=== PATIENT | male | born 1980 | race Caucasian/White ===

== ENCOUNTER 2018-01-18 18:09 | Emergency (ER) | payer OTHER, SELFPAY | END 2018-01-18 19:41 | disposition home or self-care (01) | PROVIDERS: Emergency Provider Emergency Medicine; Family Provider Family Medicine; PCP Family Medicine; Visit Provider Emergency Medicine | DX: F41.9 Anxiety disorder, unspecified (principal) | CPT/HCPCS: 99282 ==

== ENCOUNTER → 2018-05-30 12:06 | Outpatient (CLI) | payer OTHER, SELFPAY ==
[2018-05-30 13:22] LABS: Alanine Aminotransferase 23 IU/L (21-72); Albumin 4.6 g/dL (3.5-5.0); Alkaline Phosphatase 39 U/L (38-126); Aspartate Aminotransferase 17 IU/L (17-59); Bilirubin Total 0.5 mg/dL (0.2-1.3); Bilirubin Unconjugated 0.2 mg/dL (0.0-1.1); Globulin 2.3 g/dL (1.7-4.1); HEMOLYSIS < 15 (0-50); Total Protein 6.9 g/dL (6.3-8.2)
== END ==
PROVIDERS: Family Provider Family Medicine; PCP Family Medicine; Visit Provider Specialist
DX: R89.2 Abnormal level of other drugs, medicaments and biological substances in specimens from other organs, systems and tissues (principal)
CPT/HCPCS: 36415; 80076

== ENCOUNTER 2018-08-01 13:30 | Oncology outpatient (ONC) | payer OTHER, SELFPAY ==
[2018-07-30] MEDS: METOCLOPRAMIDE 10 MG in SODIUM CHLORIDE 0.9% 50 ML 208 ML IV (13:57)
[2018-07-30 14:04] VITALS: BP 130/88; PULSE 65; RESP 16; TEMP 36.7; O2SAT 99
[2018-07-30] MEDS: MAGNESIUM SULFATE IV (14:45)
[2018-07-30] MEDS: VALPROIC ACID IV (14:45)
[2018-07-30] MEDS: SODIUM CHLORIDE 0.9% IV (14:45)
[2018-07-31 14:09] VITALS: BP 110/66; PULSE 70; RESP 16; TEMP 36.8; O2SAT 97
[2018-07-31] MEDS: METOCLOPRAMIDE 10 MG in SODIUM CHLORIDE 0.9% 50 ML 208 ML IV (14:16)
[2018-07-31] MEDS: VALPROIC ACID IV (14:59)
[2018-07-31] MEDS: SODIUM CHLORIDE 0.9% IV (14:59)
[2018-08-01] MEDS: METOCLOPRAMIDE 10 MG in SODIUM CHLORIDE 0.9% 50 ML 208 ML IV (13:52)
[2018-08-01] MEDS: VALPROIC ACID IV (14:44)
[2018-08-01] MEDS: SODIUM CHLORIDE 0.9% IV (14:44)
[2018-08-01 15:39] VITALS: BP 118/73; PULSE 60; RESP 16; TEMP 36.6; O2SAT 99
== END 2018-08-08 13:34 | disposition home or self-care (01) ==
PROVIDERS: Family Provider Family Medicine; PCP Family Medicine; Visit Provider Specialist
DX: G43.919 Migraine, unspecified, intractable, without status migrainosus (principal)
CPT/HCPCS: 96365; 96375; J2765; J3475

== ENCOUNTER 2019-03-31 16:52 | Emergency (ER) | payer OTHER, SELFPAY ==
[2019-03-31 16:55] VITALS: BP 133/90; PULSE 93; RESP 20; TEMP 36.9; O2SAT 99
[2019-03-31] MEDS: KETOROLAC 60 MG/2 ML VIAL IM (17:23)
--- NOTE | 2019-03-31 17:39 | ED_ITS ---
HPI - Ear Problem <MISHA Garcia-BC - Last Filed: 03/31/19 17:49> General Chief complaint: Ear Stated complaint: L ear pain poss infection Time Seen by Provider: 03/31/19 17:03 Source: patient Mode of arrival: ambulatory Limitations: no limitations History of Present Illness HPI Narrative: The patient is a 38-year-old male current everyday smoker with history of migraines. Who presents with a chief complaint of left ear pain for several days. He states it is hurting to touch it or move it. He denies any fevers nausea vomiting or diarrhea. He states he has remote history of ear infections, but nothing recently. He has been using some ibuprofen for, last dose approximately 8 am. He denies any right ear pain or sore throat. Related Data Home Medications Medication Instructions Recorded Confirmed oxycodone 5 mg PO DAILY 03/31/19 03/31/19 Previous Rx's Medication Instructions Recorded amitriptyline 10 mg tablet 10 mg PO BEDTIME #90 tab 01/21/19 promethazine 25 mg tablet 25 mg PO Q6HP PRN #20 tab 01/21/19 propranolol 40 mg tablet 40 mg PO QID #120 tab 01/21/19 ofloxacin 10 drop EAR-LEFT DAILY 10 Days #10 03/31/19 ml Allergies Allergy/AdvReac Type Severity Reaction Status Date / Time dihydroergotamine Allergy Unknown RED SKIN, Verified 11/28/18 15:49 [DIHYDROERGOTAMINE] ITCHY, VERY HOT prochlorperazine Allergy Unknown Verified 11/28/18 15:49 [From COMPAZINE] vde Allergy Unknown Uncoded 11/28/18 15:49 Review of Systems <MAIA Garcia - Last Filed: 03/31/19 17:49> Review of Systems GENERAL: Denies chills, fatigue, malaise, fever, sweats. HEENT: See HPI RESPIRATORY: Denies dyspnea, cough, wheezing, hemoptysis, sputum. CARDIOVASCULAR: Denies chest pain, palpitations, orthopnea, edema, GASTROINTESTINAL: Denies nausea, vomiting, abdominal pain, diarrhea, constipation, melena. : Denies dysuria, frequency, incontinence, hematuria, urinary retention. MUSCULOSKELETAL: denies weakness, joint pain, or bony pain SKIN: Denies rash, skin lesions, or other NEUROLOGIC: Denies weakness, headache, numbness, change in speech, confusion, seizures, incoordination. PSYCHIATRIC: No concerning psychosocial issues. 12 point review of systems is negative except for those stated above PFSH <Gwendolyn DysonMISHA slater-EMIGDIO - Last Filed: 03/31/19 17:49> Social History Smoking Status: Current every day smoker Exam <Gwendolyn BauerMISHA-BC - Last Filed: 03/31/19 17:49> Narrative Exam Narrative: GENERAL: This is a well-nourished, well-developed patient, no acute distress HEAD: Atraumatic. Normocephalic. No temporal or scalp tenderness. EYES: Pupils equal round and reactive. Extraocular motions intact. No scleral icterus. No injection or drainage. ENT: Nose without bleeding, purulent drainage or septal hematoma. Throat without erythema, tonsillar hypertrophy or exudate. Uvula midline. Airway patent. Left ear canal erythematous, pain to palpation left pinna. Bilateral TMs pearly bowie. NECK: Trachea midline. No JVD or lymphadenopathy. Supple, nontender, no meningeal signs. CARDIOVASCULAR: Regular rate and rhythm without murmurs, gallops, or rubs. RESPIRATORY: Clear to auscultation. Breath sounds equal bilaterally. No wheezes, rales, or rhonchi. GASTROINTESTINAL: Abdomen soft, non-tender, nondistended. No hepato- splenomegaly, or palpable masses. No guarding. EXTREMITIES: No clubbing, cyanosis, or edema. No joint tenderness, effusion, or edema noted. BACK: Nontender without deformity or crepitance. No flank tenderness. NEURO: AOx3. SKIN: No rash or erythema. Initial Vital Signs Initial Vital Signs: Vital Signs Temperature 98.4 F 03/31/19 16:55 Pulse Rate 93 H 03/31/19 16:55 Respiratory Rate 03/31/19 16:55 Blood Pressure 133/90 03/31/19 16:55 Pulse Oximetry 99 03/31/19 16:55 <Mirlande Downs MD - Last Filed: 03/31/19 19:21> Initial Vital Signs Initial Vital Signs: Vital Signs Temperature 98.4 F 03/31/19 16:55 Pulse Rate 93 H 03/31/19 16:55 Respiratory Rate 03/31/19 16:55 Blood Pressure 133/90 03/31/19 16:55 Pulse Oximetry 99 03/31/19 16:55 Course <MISHA Garcia-BC - Last Filed: 03/31/19 17:49> Orders Ordered: Discontinued Medications Ketorolac Tromethamine (Toradol) 60 mg IM NOW ONE Stop: 03/31/19 17:14 Last Admin: 03/31/19 17:23 Dose: 60 mg Vital Signs - 8 hr 03/31/19 16:55 Temperature 98.4 F Pulse Rate 93 H Respiratory Rate 20 Blood Pressure 133/90 Pulse Oximetry 99 <Mirlande Downs MD - Last Filed: 03/31/19 19:21> Orders Ordered: Discontinued Medications Ketorolac Tromethamine (Toradol) 60 mg IM NOW ONE Stop: 03/31/19 17:14 Last Admin: 03/31/19 17:23 Dose: 60 mg Vital Signs - 8 hr 03/31/19 16:55 Temperature 98.4 F Pulse Rate 93 H Respiratory Rate 20 Blood Pressure 133/90 Pulse Oximetry 99 Medical Decision Making <MAIA Garcia - Last Filed: 03/31/19 17:49> MDM Narrative Medical decision making narrative: The patient is a 38-year-old male who comes in with a chief complaint of ear pain. Exam indicates otitis externa. Thus I initiated treatment with ofloxacin otic. I encouraged [id number] medications as needed and able. The patient was given IM Toradol in the emergency department. I discussed PCP follow-up. He appears overall well, nontoxic appearing. Bilateral TMs are pearly bowie. I discussed at length coming back to ER for any acute concerns. Patient has no questions or concerns upon discharge. Discharge Plan Departure Patient Disposition: Home Clinical Impression: Otitis externa Qualifiers: Otitis externa type: unspecified type Chronicity: acute Laterality: left Qualified Code(s): H60.502 - Unspecified acute noninfective otitis externa, left ear Discharge Date/Time: 03/31/19 17:47 Interventions: ED Discharge Assessment Last Done: 03/31/19 17:46 Instructions: DI for Otitis Externa Activity Restrictions/Additional Instructions: We have initiated treatment for an external ear infection. Please continue [id number] medications as needed and able for pain. Do not take any NSAIDs for about 8 hours after your Toradol injection in the ER. Please follow up with primary care provider in a few days. Please come back to the ER for any acute concerns such as inability keep down fluids etc Prescriptions: New ofloxacin 0.3 % drops 10 drop EAR-LEFT DAILY 10 Days Qty: 10 RF: 0 No Action oxycodone 5 mg Tablet 5 mg PO DAILY RF: 0 promethazine 25 mg tablet 25 mg PO Q6HP PRN (Reason: nausea and vomiting) Qty: 20 RF: 11 propranolol 40 mg tablet 40 mg PO QID Qty: 120 RF: 5 amitriptyline 10 mg tablet 10 mg PO BEDTIME Qty: 90 RF: 1 Referrals: Franck Moss DO [Primary Care Provider] -
== END 2019-03-31 17:47 | disposition home or self-care (01) ==
PROVIDERS: Emergency Provider Nurse Practitioner Family; Family Provider Family Medicine; PCP Family Medicine
DX: H60.502 Unspecified acute noninfective otitis externa, left ear (principal)
CPT/HCPCS: 96372; 99282; 99283; J1885

== ENCOUNTER → 2019-09-01 15:52 | Outpatient (CLI) | payer OTHER, SELFPAY ==
--- NOTE | 2019-09-01 | DI.MRI.S_ITS ---
PROCEDURE: MR SHOULDER LT WO CON INDICATIONS: Pain in left shoulder TECHNIQUE: Noncontrast oblique coronal T2 fast spin echo with fat saturation, oblique sagittal T1 spin echo and T2 fast spin echo with fat saturation, axial T1 spin echo and T2 fast spin echo with fat saturation through the shoulder. COMPARISON: [facility], , SHOULDER WITH CONTRAST, 12/07/2016, 9:48. FINDINGS: Image quality: Excellent. Rotator cuff: The supraspinatus, infraspinatus, and subscapularis tendons appear intact throughout. Sagittal images demonstrate no muscle atrophy. Bones and bursae: No bone marrow contusions or fractures. There is moderate acromioclavicular joint degeneration. The acromion demonstrates conventional anatomy, without an os acromiale. No pathologic subacromial-subdeltoid or subcoracoid bursal fluid is present. Capsule and soft tissues: In the absence of intra-articular contrast, the labrum and glenohumeral ligaments appear intact. The long head of the biceps tendon demonstrates normal location and morphology. The rotator interval appears normal, without fibrosis. The coracohumeral ligament is normal in thickness. IMPRESSION: 1. Acromioclavicular joint osteoarthritis. 2. No evidence of rotator cuff tear. Dictated by: Tin Banks M.D. on 09/01/2019 at 16:46 Approved by: Tin Banks M.D. on 09/01/2019 at 16:48
== END ==
PROVIDERS: PCP Family Medicine; Visit Provider Family Medicine
DX: M25.512 Pain in left shoulder (principal); M19.012 Primary osteoarthritis, left shoulder
CPT/HCPCS: 73221

== ENCOUNTER → 2019-11-23 09:38 | Outpatient (CLI) | payer OTHER, SELFPAY ==
--- NOTE | 2019-11-23 09:40 | DI.MRI.S_ITS ---
PROCEDURE: MR LUMBAR SPINE WO CON INDICATIONS: chronic radicular pain, >6 months TECHNIQUE: Noncontrast sagittal T1 spin echo and T2 fast echo, sagittal STIR, axial T1 and T2 fast spin echo through the lumbar spine. In cases with scoliosis, additional coronal T2 fast spin echo may be performed. COMPARISON: [facility], MR, MR LUMBAR SPINE WITHOUT CONTRAST, 03/28/2018, 13:01. FINDINGS: Image quality: Excellent. Alignment and Curvature: There is normal bony alignment. Bone Marrow: Marrow is of normal overall signal. No acute vertebral body compression fractures. Spinal Cord: Conus medullaris terminates at the L1-L2 level. Visualized cord demonstrates normal signal and size. Paraspinous Soft Tissues: No paravertebral masses. T12-L1: No canal stenosis or foraminal stenosis. L1-L2: Normal appearance. L2-L3: Minimal facet hypertrophy. No canal stenosis or foraminal stenosis. L3-L4: Mild facet hypertrophy. No canal stenosis or foraminal stenosis. L4-L5: Findings are unchanged. Mild disc desiccation and disc height loss. Central posterior annulus tear plus mild disc bulge. Minimal canal stenosis. Mild facet hypertrophy. No significant foraminal narrowing. L5-S1: Findings are stable. Mild disc height loss. Disc bulge. Disc material abuts the bilateral S1 nerve roots in the lateral recesses, right greater than left. No significant canal stenosis. Mild facet hypertrophy. No significant foraminal stenosis. IMPRESSION: 1. Stable findings. 2. Disc bulge at L5-S1. Disc material abuts, but does not displace the bilateral S1 nerve roots in the lateral recesses. 3. Unchanged annulus tear plus disc bulge at L4-L5. 4. Mild multilevel facet hypertrophy. Dictated by: Valente Dang M.D. on 11/24/2019 at 8:32 Approved by: Valente Dang M.D. on 11/24/2019 at 8:39
== END ==
PROVIDERS: PCP Family Medicine; Referring Provider Physical Medicine & Rehabilitation; Visit Provider Physical Medicine & Rehabilitation
DX: M51.17 Intervertebral disc disorders with radiculopathy, lumbosacral region (principal)
CPT/HCPCS: 72148

== ENCOUNTER 2019-12-09 13:49 | Outpatient (CLI) | payer OTHER, SELFPAY ==
[2019-12-09] VITALS (7 sets, daily range): BP systolic 126–139; BP diastolic 85–95; PULSE 69–78; RESP 16; TEMP 36.4; O2SAT 95–100
--- NOTE | 2019-12-09 13:51 | DI.RAD.S_ITS ---
PROCEDURE: PAIN L/S TRANSFORAMINAL INJECT INDICATIONS: SPONDOLOSIS FINDINGS: Fluoroscopic spot filming was performed to verify placement of spinal needles at the L5-S1 level(s), as labeled on the films. Appropriate location(s) of the needle tip(s) was confirmed by injection of iodinated contrast. Dictated by: Berlin Luna M.D. on 12/09/2019 at 16:16 Approved by: Berlin Luna M.D. on 12/09/2019 at 16:17
[2019-12-09] MEDS: fentaNYL 100 MCG/2 ML INJ 50 MCG IV (14:58)
[2019-12-09] MEDS: MIDAZOLAM 5 MG/5 ML VIAL IV (14:58)
[2019-12-09] MEDS: BUPIVACAINE 0.25% (PF) VIAL 2 ML INJ (15:07)
[2019-12-09] MEDS: DEXAMETHASONE 10 MG/ML VIAL 20 MG INJ (15:07)
[2019-12-09] MEDS: BETAMETHASONE 30 MG/5 ML MDV 6 MG INJ (15:07)
[2019-12-09] MEDS: IOPAMIDOL 15 ML VIAL 3 ML INJ (15:07)
--- NOTE | 2019-12-09 15:15 | P.PCN_ITS ---
Procedures Date/Time Date of procedure: 12/09/19 Time of procedure: 15:15 General Procedure description: PREOP DIAGNOSIS 1. FORMAINAL STENOSIS WITH LE SYMPTOMS, POST OP DIAGNOSIS 1. FORMAINAL STENOSIS WITH LE SYMPTOMS, PROCEDURES 1.FLUOROSCOPICALLY GUIDED CONTRAST CONTROLLED TRANSFORAMINAL EPIDURAL STEROID INJECTION - RIGHT L5/S1 TFESI PHYSICIAN: Bon Meneses DO INDICATIONS: Tanvir is referred by for treatment of Foraminal Stenosis with right LE Symptoms FINDINGS Foraminal Nerve Root Compression secondary to disc disease and facet hypertrophy DESCRIPTION OF PROCEDURE Following review of allergy and review of potential side effects and complications, including, but not necessarily limited to, infection, allergic reaction, local tissue breakdown, stroke, temporary or permanent nerve injury, paralysis, and possible , the patient indicated that the patient understood and agreed to proceed. An informed consent document was signed by the patient, witnessed by a nurse, and placed in the patient's chart. Additionally, other treatment options including medications, modalities, and physical therapy were reviewed with the patient. After review of previous anaesthesic history and IV conscious sedation the patient was deemed safe to proceed with todays procedure with IV conscious sedation as ASA class II designation. Safety time-out was performed to confirm patient ID, procedure to be performed and site of procedure. IV sedation was accomplished with a combination of 3mg of Versed and 50mcg of Fentanyl was administered by the RN after DO order, titrated to patient comfort during the course of the procedure while the patient remained responsive to all verbal commands In the prone position following sterile prep and drape of the lumbar region, the right L5/S1 posterior neuroforamen was identified fluoroscopically. The skin was anesthetized via a 25-gauge 1.5-inch needle with 1% lidocaine solution. At this point, a 25-gauge 3.5-inch spinal needle was atraumatically introduced and advanced under fluoroscopic guidance through the posterior right L5/S1 neuroforamen to approximately the anterior aspect of the canal. Depth was confirmed on lateral view. Following negative aspiration, injection of approximately 1.5 cc of Isovue 200 under live fluoroscopy in the AP view confirmed excellent flow along the nerve root, into the epidural space without vascular or intrathecal uptake observed Radiological data, including multiple fluoroscopic views of the lumbosacral spine, reveal a spinal needle at the right L5/S1 posterior neuroforamen. Subsequent views show flow of contrast material flowing superiorly and inferiorly along the nerve root confirming epidural flow. Subsequently, a test dose of 1.5 cc of 1% lidocaine solution was administered and patient was observed for two minutes for signs or symptoms of complications, including abdominal pain, shortness of breath, bilateral upper or lower extremity weakness, nausea and vomiting, prior to steroid injection. At this po int, a total of 3cc or 20mg of dexamethasone and 6mg betamethasone was injected without incident. The procedure tolerated the procedure well without signs or symptoms of complications prior to transfer to the recovery area continued monitoring without incident. The patient was then transferred to the recovery area where they were observed for an appropriate time after the injection. The patient reported a VAS score of 7 prior to the procedure and a post-procedure VAS of 0. Total Fluoroscopy Time: 9 seconds Total Conscious Sedation Time: 24min POST OP INSTRUCTIONS The patient was provided a Pain Log to continue to record their response to the target-specific procedure prior to follow-up visit with their referring physician. Additionally, specific post-injection care instructions and a contact number to our office were provided if concerns arise regarding possible complications associated with the procedure are suspected. Bon Meneses, Complications: none
--- NOTE | 2019-12-09 15:33 | PC.NURSE ---
1520: Received patient from Sara BRADLEY, via , awake, and alert, and pleasant. Transfer from WC to chair with steady gait. VSS upon arrival.
--- NOTE | 2019-12-10 16:57 | PC.NURSE ---
FOLLOW UP CALL MADE. PT STATES HE NOTED R HEEL NUMBNESS AT APPROX 21OO 11/10/2019 THAT LASTED UNTIL HE WENT TO BED BUT WAS GONE WHEN HE WOKE UP. HE ALSO C/O BILAT 03/10 LOWER BACK ACHING PAIN POST PROCEDURE. I ENCOURAGED HIM TO USE OTC MEDICATIONS FOR PAIN, HEAT AND LIGHT STRETCHING AND TO AVOID LIFTING OR STRENUOUS MOVEMENTS. INSTRUCTED PT TO CONTINUE WITH PAIN LOG BUT TO CALL CLINIC NUMBER IF THINGS CONTINUED TO GET WORSE. PT VERBALIZED UNDERSTANDING OF ALL INSTRUCTIONS. DENIED OTHER QUESTIONS/CONCERNS. WILL PASS INFORMATION ON TO DR VALLECILLO BY EMAIL.
== END 2019-12-09 15:30 | disposition home or self-care (01) ==
PROVIDERS: PCP Family Medicine; Referring Provider Physical Medicine & Rehabilitation; Visit Provider Physical Medicine & Rehabilitation
DX: M48.07 Spinal stenosis, lumbosacral region (principal); M51.17 Intervertebral disc disorders with radiculopathy, lumbosacral region
CPT/HCPCS: 64483; 99152; J0702; J1100; J2250; J3010

== ENCOUNTER → 2020-09-18 10:28 | Outpatient (CLI) | payer OTHER, SELFPAY ==
--- NOTE | 2020-09-18 | DI.MRI.S_ITS ---
PROCEDURE: MR THORACIC SPINE WO CON INDICATIONS: Radiculopathy, thoracic region TECHNIQUE: Noncontrast sagittal T1 spine echo and T2 fast spin echo, sagittal STIR, axial T1 and T2 fast spin echo through the thoracic spine. COMPARISON: None. FINDINGS: Image quality: Excellent. Alignment and Curvature: There is normal bony alignment. Bone Marrow: Marrow is of normal overall signal. No acute vertebral body compression fractures. Spinal Cord: Visualized spinal cord is normal in size and signal. Paraspinous Soft Tissues: No paravertebral masses. Miscellaneous: On axial images, central canal and foramina appear widely patent at all scanned levels. IMPRESSION: Minimal degenerative disc height reduction and disc desiccation is noted along the upper, middle and lower thirds of the thoracic spine without disc bulge or associated disc herniation. No spinal or foraminal stenosis is seen. The paravertebral soft tissues appear normal. Dictated by: Emir Gipson M.D. on 09/20/2020 at 12:56 Approved by: Emir Gipson M.D. on 09/20/2020 at 12:57
--- NOTE | 2020-09-18 | DI.RAD.S_ITS ---
PROCEDURE: XR T AND L SPINE 2 TO 3 VIEWS INDICATIONS: SCOLIOSIS TECHNIQUE: 2 views acquired of the thoracolumbar spine. COMPARISON: None. FINDINGS: Bones: No acute fractures or dislocations. Visualized inferior ribs appear intact. No suspicious bony lesions. There is rightward curvature of the thoracic spine with the apex at T7. Glass angle is 10 degrees. No vertebral body height loss of the thoracic or lumbar spine to suggest compression fracture. Degenerative changes are minimal. Soft tissues: No suspicious soft tissue calcifications. IMPRESSION: 1. Dextroscoliosis of the thoracolumbar spine between T3 and T10 with the rightward apex at T7 and a Glass angle of 10 degrees. 2. No acute abnormality. Dictated by: Isai Nix M.D. on 09/18/2020 at 17:14 Approved by: Isai Nix M.D. on 09/18/2020 at 17:17
== END ==
PROVIDERS: PCP Family Medicine; Referring Provider Physical Medicine & Rehabilitation; Visit Provider Physical Medicine & Rehabilitation
DX: M54.14 Radiculopathy, thoracic region (principal); M41.85 Other forms of scoliosis, thoracolumbar region
CPT/HCPCS: 72082; 72146

== ENCOUNTER 2021-07-25 09:18 | Emergency (ER) | payer OTHER, SELFPAY ==
[2021-07-25 09:27] VITALS: PULSE 86; RESP 16; O2SAT 100
--- NOTE | 2021-07-25 09:28 | DI.RAD.S_ITS ---
PROCEDURE: XR CHEST 1V INDICATIONS: chest pain TECHNIQUE: One view of the chest was acquired. COMPARISON: [facility], , CHEST 2 VIEW, 06/20/2016, 11:32. FINDINGS: Surgical changes and devices: None. Lungs and pleura: Lungs are clear. No pleural effusions or pneumothorax. Mediastinum: Mediastinal contours appear normal. Heart size is normal. Bones and chest wall: Chronic right clavicle fracture which has healed in deformity is stable compared to the prior exam. No suspicious bony lesions. Overlying soft tissues appear unremarkable. IMPRESSION: No acute cardiopulmonary disease process. Dictated by: Rupali Wang MD, PhD on 07/25/2021 at 9:55 Approved by: Rupali Wang MD, PhD on 07/25/2021 at 9:56
[2021-07-25 09:29] VITALS: BP 149/103; PULSE 85; RESP 18; TEMP 36.4; O2SAT 99; BMI 32.5
[2021-07-25 09:30] VITALS: BP 131/86; PULSE 84; RESP 19; O2SAT 98
--- NOTE | 2021-07-25 09:35 | ED_ITS ---
HPI - General Adult General Chief complaint: Hypertension Stated complaint: BP high Time Seen by Provider: 07/25/21 09:29 Source: patient Mode of arrival: Ambulatory Limitations: no limitations History of Present Illness HPI narrative: 40M daily smoker with a history of migraines, chronic back pain and palpitations presents with concerns over elevated blood pressure. He takes metoprolol for occasional early beats and for that reason checks his blood pressure which has been rising to his high as the 140s at home. He denies any headache or blurred vision. He denies any chest pain but does feel some squeezing and pressure. He denies any abdominal pain, nausea or vomiting. He denies any numbness, tingling or weakness in his extremities. 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 Related Data Home Medications Medication Instructions Recorded Confirmed gabapentin 300 mg capsule 600 mg PO TID cap 12/02/19 12/02/19 Previous Rx's Medication Instructions Recorded promethazine 25 mg tablet 25 mg PO Q6HP PRN #20 tab 01/21/19 oxycodone 15 mg tablet 15 mg PO Q6H PRN #15 tab 06/13/19 oxycodone 15 mg tablet 15 mg PO TID PRN #15 tab 06/13/19 oxycodone 15 mg tablet 15 mg PO TID PRN #15 tab 06/13/19 amitriptyline 50 mg tablet 50 mg PO BEDTIME #30 tab 09/08/19 fremanezumab-vfrm 225 mg/1.5 mL 225 mg SUBCUT QMONTH #1.5 ml 09/09/19 subcutaneous syringe (Ajovy Syringe) oxycodone 15 mg tablet 15 mg PO BID PRN #10 tab 09/09/19 oxycodone 15 mg tablet 15 mg PO ONCE #10 tab 09/09/19 oxycodone 15 mg tablet 15 mg PO ONCE #10 tab 09/09/19 promethazine 25 mg tablet 6.25 mg PO TID PRN #20 tab 09/09/19 carisoprodol 350 mg tablet (Soma) 350 mg PO TID PRN #20 tab 10/30/19 oxycodone 15 mg tablet 15 mg PO TID PRN #14 tab 10/30/19 lidocaine 5 % topical patch 1 patch TOP DAILY #30 each MDD 12 11/20/19 hours in a 24 hour period diazepam 10 mg tablet (Valium) 10 mg PO .COMPLEX PRN #10 tab 11/24/19 amitriptyline 50 mg tablet 50 mg PO BEDTIME #90 tab 12/02/19 fremanezumab-vfrm 225 mg/1.5 mL 225 mg SUBCUT QMONTH #1.5 ml 12/02/19 subcutaneous syringe (Ajovy Syringe) oxycodone 15 mg tablet 15 mg PO Q12H PRN #20 tab 12/02/19 celecoxib 200 mg capsule See Rx Instructions .ROUTE 02/16/20 .COMPLEX #30 capsule Allergies Allergy/AdvReac Type Severity Reaction Status Date / Time duloxetine Allergy Severe Hallucinati Verified 07/25/21 09:29 ng dihydroergotamine Allergy Unknown RED SKIN, Verified 07/25/21 09:29 [DIHYDROERGOTAMINE] ITCHY, VERY HOT prochlorperazine Allergy Unknown Verified 07/25/21 09:29 [From COMPAZINE] vde Allergy Unknown Uncoded 07/25/21 09:29 Review of Systems Review of Systems Narrative: GENERAL: Denies chills, fatigue, malaise, fever, sweats. HEENT: Denies sinus pain, ear pain, sore throat, difficulty swallowing, dizziness. RESPIRATORY: Denies dyspnea, cough, wheezing, hemoptysis, sputum. CARDIOVASCULAR: See HPI GASTROINTESTINAL: Denies nausea, vomiting, abdominal pain, diarrhea, constipation, melena. : Denies dysuria, frequency, incontinence, hematuria, urinary retention. MUSCULOSKELETAL: denies weakness, joint pain, or bony pain SKIN: Denies rash, skin lesions, or other NEUROLOGIC: Denies weakness, headache, numbness, change in speech, confusion, seizures, incoordination. PSYCHIATRIC: No concerning psychosocial issues. 12 point review of systems is negative except for those stated above Patient History Medical History (Updated 07/25/21 @ 11:09 by Venkata Naidu DO) Facet arthropathy, lumbar Herniated nucleus pulposus, L5-S1 Surgical History History of hand surgery History of shoulder surgery History of tonsillectomy and adenoidectomy Family History Son Migraine Mother Colitis Asthma Social History Smoking Status: Current every day smoker Smoking Status: Current every day smoker Substance Use Type: marijuana Exam Narrative Exam Narrative: GENERAL: [40 year old patient appears stated age. Well-developed patient, in mild distress. Anxious. Current blood pressure 136 over 80 HEAD: Atraumatic. Normocephalic. EYES: Pupils equal round and reactive. Extraocular motions intact. No scleral icterus. No injection or drainage. ENT: Nose without bleeding, purulent drainage. Throat without erythema, tonsillar hypertrophy or exudate. Airway patent. NECK: Trachea midline. Non tender CARDIOVASCULAR: Regular rate and rhythm without murmurs, gallops, or rubs. RESPIRATORY: Clear to auscultation. Breath sounds equal bilaterally. No wheezes, rales, or rhonchi. GASTROINTESTINAL: Abdomen soft, non-tender, nondistended. EXTREMITIES: No edema or joint tenderness. BACK: Nontender without deformity or crepitance. No flank tenderness. NEURO: AOx3. SKIN: No rash or erythema of visible areas Initial Vital Signs Initial Vital Signs: Vital Signs Pulse Rate 86 07/25/21 09:27 Respiratory Rate 16 07/25/21 09:27 Pulse Oximetry 100 07/25/21 09:27 Course Orders Ordered: Discontinued Medications Furosemide (Furosemide 40 Mg/4 Ml Vial) 40 mg IV NOW ONE Stop: 07/25/21 10:11 Last Admin: 07/25/21 10:39 Dose: Not Given Documented by: XIN Vital Signs Vital signs: Vital Signs - 8 hr 07/25/21 09:29 Temperature 97.6 F Pulse Rate 85 Respiratory Rate 18 Blood Pressure 149/103 H Pulse Oximetry 99 Medical Decision Making Lab Data Result diagrams: 07/25/21 09:45 07/25/21 09:45 Labs: Lab Results 07/25/21 07/25/21 Range/Units 09:45 09:45 WBC 7.3 (4.5-11.0) X10^3/uL RBC 4.97 (4.5-5.9) X10^6/uL Hgb 14.8 (13.5-17.5) g/dL Hct 43.0 (41-53) % MCV 86.5 (80-100) fL MCH 29.8 (26-34) PG MCHC 34.4 (30-36) % RDW 13.3 (11.6-14.8) % Plt Count 349 (150-400) X10^3/uL Neut % (Auto) 49.5 L (50-75) % Lymph % (Auto) 41.2 H (25-40) % [place] % (Auto) 7.1 (3-14) % Eos % (Auto) 1.3 L (2-4) % Baso % (Auto) 0.9 (0-2) % Neut # (Auto) 3600 (6933-8821) /uL Lymph # (Auto) 3000 (5404-7909) /uL [place] # (Auto) 500 (0-900) /uL Eos # (Auto) 100 (0-450) /uL Baso # (Auto) 100 (0-100) /uL Sodium 140 (137-145) mmol/L Potassium 4.3 (3.4-5.1) mmol/L Chloride 104 (98-107) mmol/L Carbon Dioxide 26 (22-32) mmol/L BUN 15 (9-20) mg/dL Creatinine 0.91 (0.66-1.25) mg/dL Estimated GFR > 60.0 (>60) mL/min BUN/Creatinine Ratio 16.5 (6-22) Glucose 106 H (70-100) mg/dL Calcium 9.9 (8.4-10.2) mg/dL Magnesium 1.9 (1.6-2.3) mg/dL Total Bilirubin 0.3 (0.2-1.3) mg/dL AST 45 (17-59) IU/L ALT 70 H (<50) IU/L Alkaline Phosphatase 41 (38-126) U/L Total Creatine Kinase 154 (55-170) U/L CK-MB (CK-2) 0.85 (<2.37) ng/mL CK-MB (CK-2) Rel Index 0.6 L (1.5-5.0) % Troponin I < 0.012 (0.01-0.034) ng/mL Total Protein 7.1 (6.3-8.2) g/dL Albumin 4.6 (3.5-5.0) g/dL Globulin 2.5 (1.7-4.1) g/dL Albumin/Globulin Ratio 1.8 (1.0-2.8) Lipase 420 H (23-300) U/L ECG Data Interpretation: EKG is normal sinus rhythm rate [83 ] and free of any signs of ischemia or ectopy. No ST segmental elevation or depression. No T wave inversions Discharge Plan Departure Patient Disposition: Home Clinical Impression: HTN (hypertension) Qualifiers: Hypertension type: unspecified Qualified Code(s): I10 - Essential (primary) hypertension Instructions: DI for High Blood Pressure Activity Restrictions/Additional Instructions: *You have been diagnosed with [ Hypertension. ] *What to do: *Please continue to take your regular medications as directed. [ ] New medication prescriptions sent to your pharmacy: [ ] [ ] New medication written as a paper prescription [x ] No new medications given *Please follow up with your primary care provider in 2-3 days, call for an appointment. Let them know you were seen in the Emergency Department and that we ask that you be seen in follow up. We will electronically transmit a record of today's note if your PCP is in our system *If you do not have a primary care provider please contact the [email or web address] line at [phone]. They will ask some questions about your medical history and help get you set up with a doctor in the community. *Return to Emergency Department if you should have any new, worsening or concerning symptoms, such as [fever greater than 101 F, shaking chills, worsening pain, persistent vomiting or other bothersome symptoms] Prescriptions: No Action amitriptyline 50 mg tablet 50 mg PO BEDTIME Qty: 30 RF: 2 celecoxib 200 mg capsule See Rx Instructions .ROUTE .COMPLEX Qty: 30 RF: 2 oxycodone 15 mg tablet 15 mg PO Q6H PRN (Reason: pain) Qty: 15 RF: 0 oxycodone 15 mg tablet 15 mg PO TID PRN (Reason: pain) Qty: 15 RF: 0 oxycodone 15 mg tablet 15 mg PO TID PRN (Reason: pain) Qty: 15 RF: 0 Ajovy Syringe 225 mg/1.5 mL syringe 225 mg SUBCUT QMONTH Qty: 1.5 RF: 12 promethazine 25 mg tablet 6.25 mg PO TID PRN (Reason: nausea and vomiting) Qty: 20 RF: 2 oxycodone 15 mg tablet 15 mg PO BID PRN (Reason: pain) Qty: 10 RF: 0 oxycodone 15 mg tablet 15 mg PO ONCE Qty: 10 RF: 0 oxycodone 15 mg tablet 15 mg PO ONCE Qty: 10 RF: 0 amitriptyline 50 mg tablet 50 mg PO BEDTIME Qty: 90 RF: 1 Ajovy Syringe 225 mg/1.5 mL syringe 225 mg SUBCUT QMONTH Qty: 1.5 RF: 11 oxycodone 15 mg tablet 15 mg PO Q12H PRN (Reason: pain) Qty: 20 RF: 0 promethazine 25 mg tablet 25 mg PO Q6HP PRN (Reason: nausea and vomiting) Qty: 20 RF: 11 carisoprodol [Soma] 350 mg tablet 350 mg PO TID PRN (Reason: muscle pain) Qty: 20 RF: 0 oxycodone 15 mg tablet 15 mg PO TID PRN (Reason: pain) Qty: 14 RF: 0 lidocaine 5 % adhesive patch,medicated 1 patch TOP DAILY MDD 12 hours in a 24 hour period Qty: 30 RF: 5 diazepam [Valium] 10 mg tablet 10 mg PO .COMPLEX PRN (Reason: anxiety) Qty: 10 RF: 0 gabapentin 300 mg capsule 600 mg PO TID RF: 0 Referrals: Franck Moss DO [Primary Care Provider] -
[2021-07-25 10:00] VITALS: BP 123/81; PULSE 83; RESP 21; O2SAT 96
[2021-07-25 10:03] LABS: Add Manual Diff / Slide Review NO; Basophils Absolute Auto 100 /uL (0-100); Basophils Percent Auto 0.9 % (0-2); Eosinophils Absolute Auto 100 /uL (0-450); Eosinophils Percent Auto 1.3 % (2-4); Hemoglobin 14.8 g/dL (13.5-17.5); Lymphocytes Absolute Auto 3000 /uL (1100-4500); Lymphocytes Percent Auto 41.2 % (25-40); Mean Corpuscular HGB Conc 34.4 % (30-36); Mean Corpuscular Hemoglobin 29.8 PG (26-34); Mean Corpuscular Volume 86.5 fL (80-100); Monocytes Absolute Auto 500 /uL (0-900); Monocytes Percent Auto 7.1 % (3-14); Neutrophils Absolute Auto 3600 /uL (1500-7000); Neutrophils Percent Auto 49.5 % (50-75); Platelet Count 349 X10^3/uL (150-400); Red Blood Cell Count 4.97 X10^6/uL (4.5-5.9); Red Cell Distribution Width 13.3 % (11.6-14.8); White Blood Cell Count 7.3 X10^3/uL (4.5-11.0)
[2021-07-25 10:30] VITALS: BP 116/78; PULSE 79; RESP 18; O2SAT 97
[2021-07-25 10:34] LABS: Alanine Aminotransferase 70 IU/L (<50); Albumin 4.6 g/dL (3.5-5.0); Albumin Globulin Ratio 1.8 (1.0-2.8); Alkaline Phosphatase 41 U/L (38-126); Aspartate Aminotransferase 45 IU/L (17-59); BUN Creatinine Ratio 16.5 (6-22); Bilirubin Total 0.3 mg/dL (0.2-1.3); Blood Urea Nitrogen 15 mg/dL (9-20); Calcium 9.9 mg/dL (8.4-10.2); Carbon Dioxide 26 mmol/L (22-32); Chloride 104 mmol/L (98-107); Creatine Kinase 154 U/L (55-170); Estimated Glomerular Filt Rate > 60.0 mL/min (>60); Globulin 2.5 g/dL (1.7-4.1); Glucose 106 mg/dL (70-100); HEMOLYSIS < 15 (0-50); Lipase 420 U/L (23-300); Magnesium 1.9 mg/dL (1.6-2.3); Potassium 4.3 mmol/L (3.4-5.1); Sodium 140 mmol/L (137-145); Total Protein 7.1 g/dL (6.3-8.2)
[2021-07-25 10:44] LABS: Troponin I < 0.012 ng/mL (0.01-0.034)
[2021-07-25 10:49] LABS: CKMB % Relative Index 0.6 % (1.5-5.0); Creatine Kinase MB 0.85 ng/mL (<2.37)
[2021-07-25 11:00] VITALS: BP 132/84; PULSE 75; RESP 21; O2SAT 98
== END 2021-07-25 11:24 | disposition home or self-care (01) ==
PROVIDERS: Emergency Provider Emergency Medicine; PCP Family Medicine
DX: I10 Essential (primary) hypertension (principal); R07.9 Chest pain, unspecified
CPT/HCPCS: 36415; 71045; 80053; 82550; 82553; 83690; 83735; 84484; 85025; 93005; 99284

== ENCOUNTER → 2021-11-17 13:29 | Outpatient (CLI) | payer OTHER, SELFPAY ==
--- NOTE | 2021-11-17 | DI.ECHO.S_ITS ---
[facility]---------[facility] +---------+ : : [address] : : : : [id number] : : : : Phone: [phone]+ Echocardiogram Report + + :Name: KAYLAH SEPULVEDA Study Date: 11/17/2021 Height: 73.5 in: :[facility] ReadingLocation: Weight: 254 lb : : Gender: Male BSA: 2.4 m2 : :: 1980 Age: 40 yrs BP: 135/87 mmHg: :Reason For Study: Hypertension : :Ordering Physician: : :ETHAN Performed By: Basilio Candelario : :Referring: ROBBIN BALBUENA : + + Interpretation Summary 1) Normal left ventricular thickness, size, wall motion, and systolic function (EF 55-60%). 2) Normal right ventricular size and function. 3) No significant valvular abnormalities. 4) No prior Echo available for comparison. Procedure: A two-dimensional transthoracic echocardiogram with color flow and Doppler was performed. The study quality was technically adequate. There is no prior echocardiogram noted for this patient. The patient was in normal sinus rhythm during the exam. Left Ventricle: The left ventricle is normal in size and wall thickness. Left ventricular systolic function appears normal without focal wall motion abnormalities. Right Ventricle: The right ventricle is normal in size and function. Atria: Both atria are normal in size. There is no Doppler evidence for an interatrial shunt. Mitral Valve: The mitral valve leaflets appear borderline thickened, but open well. There is no mitral regurgitation noted. Aortic Valve: The aortic valve is trileaflet. The aortic valve opens well. There is no aortic valve stenosis. No aortic regurgitation is present. Tricuspid Valve: The tricuspid valve is normal. There is a trace or physiologic amount of tricuspid regurgitation. Pulmonary artery pressures cannot be estimated because of the lack of a measurable TR jet velocity but the IVC suggests a CVP of around 3 mmHg. Pulmonic Valve: The pulmonic valve leaflets are thin and pliable; valve motion is normal. There is trace pulmonic regurgitation. Great Vessels: The aortic root is normal size. The ascending aorta is normal in size. The aortic arch is normal in size. The IVC is of normal diameter and collapses greater than 50% with a sniff. This suggests a low right atrial pressure of 3 mm Hg. Pericardium/ Pleura There is no pericardial effusion. There is an anterior echo-free space consistent with a fat pad. There is no pleural effusion. MMode/2D Measurements & Calculations LVIDd: 5.0 cm LVOT diam: 2.3 cm LVIDs: 3.1 cm Ao root diam: 3.3 cm FS: 38.0 % asc Aorta Diam: 3.2 cm IVSd: 0.80 cm Ao Arch Diam (Prox Trans): 2.7 cm LVPWd: 0.90 cm LV draper. diameter/BSA (cm/m^2): 2.1 LV sys. diameter/BSA (cm/m^2): 1.3 LA A2 area: 17.3 cm2 RA long axis: 5.5 cm LA A4 area: 16.5 cm2 IVC diam: 1.5 cm LA length (vol): 4.9 cm LA vol: 49.3 ml LA vol index: 20.6 ml/m2 TAPSE_phl: 2.1 cm Doppler Measurements & Calculations Ao V2 max: 123.5 cm/sec LVOT Max Lion: 113.1 cm/sec Ao V2 mean: 91.4 cm/sec LV V1 max P.1 mmHg Ao max P.1 mmHg LV V1 VTI: 20.2 cm Ao mean P.6 mmHg ANTONI(I,D): 3.5 cm2 Ao V2 VTI: 23.7 cm ANTONI(V,D): 3.8 cm2 sev ratio: 0.85 ANTONI indexed to BSA (cm^2/m^2): 1.5 MV E max lion: 54.8 cm/sec SV(LVOT): 83.9 ml MV A max lion: 48.0 cm/sec MV E/A: 1.1 Med Peak E' Lion: 7.6 cm/sec E/E' med: 7.2 Lat Peak E' Lion: 11.4 cm/sec E/E' lat: 4.8 E/e' average: 6.0 MV dec time: 0.25 sec MV P1/2t-pr_phl: 73.0 msec Reading Physician:04:19 PM
== END ==
PROVIDERS: PCP Family Medicine; Referring Provider Internal Medicine Cardiovascular Disease; Visit Provider Internal Medicine Cardiovascular Disease
DX: R06.02 Shortness of breath (principal); I10 Essential (primary) hypertension; R53.83 Other fatigue
CPT/HCPCS: 93306

== ENCOUNTER 2023-11-02 17:43 | Emergency (ER) | payer OTHER, SELFPAY ==
[2023-11-02 17:50] VITALS: BP 161/100; PULSE 104; RESP 20; TEMP 36.6; O2SAT 100; BMI 34.7
--- NOTE | 2023-11-02 18:20 | ED.URI ---
HPI - URI/Sore Throat <Jerel Armstrong PA-C - Last Filed: 11/03/23 12:00> General Chief Complaint: Upper Respiratory Symptoms Stated Complaint: flu symptoms Time Seen by Provider: 11/02/23 17:53 History of Present Illness HPI Narrative: This is a 42-year-old male presents emergency department due to 2 days of URI symptoms. He states that his as well as baby tested positive for influenza A. He reports a runny nose, some sinus congestion, sore throat. Denies any chest pain or shortness of breath. Related Data Home Medications Medication Instructions Recorded Confirmed gabapentin 300 mg capsule 600 mg PO TID 12/02/19 12/02/19 Previous Rx's Medication Instructions Recorded promethazine 25 mg tablet 25 mg PO Q6HP PRN nausea and 01/21/19 vomiting #20 tabs oxycodone 15 mg tablet 15 mg PO Q6H PRN pain #15 tabs 06/13/19 oxycodone 15 mg tablet 15 mg PO TID PRN pain #15 tabs 06/13/19 oxycodone 15 mg tablet 15 mg PO TID PRN pain #15 tabs 06/13/19 amitriptyline 50 mg tablet 50 mg PO BEDTIME #30 tabs 09/08/19 fremanezumab-vfrm 225 mg/1.5 mL 225 mg (1.5 mL) SUBCUT QMONTH #1.5 09/09/19 subcutaneous syringe (Ajovy mL Syringe) oxycodone 15 mg tablet 15 mg PO BID PRN pain #10 tabs 09/09/19 oxycodone 15 mg tablet 15 mg PO ONCE #10 tabs 09/09/19 oxycodone 15 mg tablet 15 mg PO ONCE #10 tabs 09/09/19 promethazine 25 mg tablet 6.25 mg (1/4 x 25 mg) PO TID PRN 09/09/19 nausea and vomiting #20 tabs carisoprodol 350 mg tablet (Soma) 350 mg PO TID PRN muscle pain #20 10/30/19 tabs oxycodone 15 mg tablet 15 mg PO TID PRN pain #14 tabs 10/30/19 lidocaine 5 % topical patch 1 patch topical DAILY low back 11/20/19 pain #30 ea diazepam 10 mg tablet (Valium) 10 mg PO .COMPLEX PRN anxiety #10 11/24/19 tabs amitriptyline 50 mg tablet 50 mg PO BEDTIME #90 tabs 12/02/19 fremanezumab-vfrm 225 mg/1.5 mL 225 mg (1.5 mL) SUBCUT QMONTH #1.5 12/02/19 subcutaneous syringe (Ajovy mL Syringe) oxycodone 15 mg tablet 15 mg PO Q12H PRN pain #20 tabs 12/02/19 celecoxib 200 mg capsule See Rx Instructions .Route 02/16/20 .COMPLEX #30 caps dexamethasone 6 mg tablet 3 mg (1/2 x 6 mg) PO DAILY #3 tabs 11/02/23 lidocaine HCl 2 % mucosal solution 1 applic mucous membrane DAILY PRN 11/02/23 (Lidocaine Viscous) pain #100 mL oseltamivir 75 mg capsule 75 mg PO BID 5 days #10 caps 11/02/23 Allergies Allergy/AdvReac Type Severity Reaction Status Date / Time duloxetine Allergy Severe Hallucinati Verified 07/25/21 09:29 ng dihydroergotamine Allergy Unknown RED SKIN, Verified 07/25/21 09:29 [DIHYDROERGOTAMINE] ITCHY, VERY HOT prochlorperazine Allergy Unknown Verified 07/25/21 09:29 [From COMPAZINE] vde Allergy Unknown Uncoded 07/25/21 09:29 Review of Systems <Jerel Armstrong PA-C - Last Filed: 11/03/23 12:00> Review of Systems Narrative: GENERAL: Denies chills, fatigue, malaise, fever, sweats. HEENT: Denies sinus pain, ear pain, sore throat, difficulty swallowing, dizziness. RESPIRATORY: Reports cough, sinus congestion, sore throat Denies dyspnea, , wheezing, hemoptysis, sputum. CARDIOVASCULAR: Denies chest pain, palpitations, orthopnea, edema, GASTROINTESTINAL: Denies nausea, vomiting, abdominal pain, diarrhea, constipation, melena. : Denies dysuria, frequency, incontinence, hematuria, urinary retention. MUSCULOSKELETAL: denies weakness, joint pain, or bony pain SKIN: Denies rash, skin lesions, or other NEUROLOGIC: Denies weakness, headache, numbness, change in speech, confusion, seizures, incoordination. PSYCHIATRIC: No concerning psychosocial issues. 12 point review of systems is negative except for those stated above Patient History <Jerel Armstrong PA-C - Last Filed: 11/03/23 12:00> Medical History (Updated 11/02/23 @ 18:21 by Jerel Armstrong PA-C) Facet arthropathy, lumbar Herniated nucleus pulposus, L5-S1 Surgical History History of shoulder surgery History of tonsillectomy and adenoidectomy History of hand surgery Family History Son Migraine Mother Colitis Asthma Social History Smoking Status: Current every day smoker Smoking Status: Current every day smoker Substance Use Type: marijuana Exam <Jerel Armstrong PA-C - Last Filed: 11/03/23 12:00> Narrative Exam Narrative: GENERAL: Well-developed patient, in mild distress. HEAD: Atraumatic. Normocephalic. EYES: Pupils equal round and reactive. Extraocular motions intact. No scleral icterus. No injection or drainage. ENT: Nose without bleeding, purulent drainage. Throat without erythema, tonsillar hypertrophy or exudate. Airway patent. NECK: Trachea midline. Non tender EXTREMITIES: No edema or joint tenderness. NEURO: AOx3. SKIN: No rash or erythema of visible areas CARDIOVASCULAR: Regular rate and rhythm without murmurs, gallops, or rubs. RESPIRATORY: Clear to auscultation. Breath sounds equal bilaterally. No wheezes, rales, or rhonchi. GASTROINTESTINAL: Abdomen soft, non-tender, nondistended. BACK: Nontender without deformity or crepitance. No flank tenderness. Initial Vital Signs Initial Vital Signs: Vital Signs Temperature 97.8 F 11/02/23 17:50 Pulse Rate 104 H 11/02/23 17:50 Respiratory Rate 20 11/02/23 17:50 Blood Pressure 161/100 H 11/02/23 17:50 Pulse Oximetry 100 11/02/23 17:50 Oxygen Delivery Method Room Air 11/02/23 17:50 <Remy Melvin DO - Last Filed: 11/03/23 13:54> Initial Vital Signs Initial Vital Signs: Vital Signs Temperature 97.8 F 11/02/23 17:50 Pulse Rate 104 H 11/02/23 17:50 Respiratory Rate 20 11/02/23 17:50 Blood Pressure 161/100 H 11/02/23 17:50 Pulse Oximetry 100 11/02/23 17:50 Oxygen Delivery Method Room Air 11/02/23 17:50 Course <Jerel Armstrong PA-C - Last Filed: 11/03/23 12:00> Vital Signs Vital signs: Vital Signs - 8 hr 11/02/23 17:50 Temperature 97.8 F Pulse Rate 104 H Respiratory Rate 20 Blood Pressure 161/100 H Pulse Oximetry 100 Oxygen Delivery Method Room Air <Remy Melvin DO - Last Filed: 11/03/23 13:54> Vital Signs Vital signs: Vital Signs - 8 hr 11/02/23 17:50 Temperature 97.8 F Pulse Rate 104 H Respiratory Rate 20 Blood Pressure 161/100 H Pulse Oximetry 100 Oxygen Delivery Method Room Air MDM - URI/Sore Throat <Jerel Armstrong PA-C - Last Filed: 11/03/23 12:00> MDM Narrative Medical decision making narrative: ED course: This is a 42-year-old male presents to the emergency department due to 2 days of URI symptoms. Patient's and daughter have both tested positive for influenza A. Shared decision-making utilized and we will empirically treat with Tamiflu. CC: Sinus congestion Complicating co-morbidities: Obesity Data collected from: Previous notes Medical records reviewed: Patient has not been here for similar complaints in the past. Differential considered, but not limited to: COVID, flu Exam documented above, pertinent findings include: Unremarkable Lab Test results independently reviewed as above. Pertinent findings: Not obtained Imaging studies independently reviewed: None obtained Scores Used: None MIPS Elements: None Consultations: None Treatments: None \ Re-evaluations: None Discussion: Discussed plan with the patient was comfortable with the plan Diagnosis: Upper respiratory infection Disposition: see below, along with detailed discharge instructions that have been reviewed with patient as well as indications for ED re-evaluation and additional outpatient follow up Discharge Plan Departure Patient Disposition: Home Clinical Impression: Upper respiratory infection Instructions: DI for Influenza -- Adult Activity Restrictions/Additional Instructions: Thank you for coming to the [facility] Emergency Department today. Please take the medications as prescribed. Please return to the emergency department if you develop any significant shortness of breath, chest pain, or any other concerning signs or symptoms. I hope you feel better soon. Please follow up with your primary care provider within a week if your symptoms continue. If you do not have a primary care provider please contact the [facility] Resource line at [phone]. They will ask some questions about your medical history and help you get set up with a provider in the community. Prescriptions: New oseltamivir 75 mg capsule 75 mg PO BID 5 Days Qty: 10 0RF dexamethasone 6 mg tablet 3 mg PO DAILY Qty: 3 0RF lidocaine HCl [Lidocaine Viscous] 2 % solution 1 applic mucous membrane DAILY PRN (Reason: pain) Qty: 100 0RF No Action amitriptyline 50 mg tablet 50 mg PO BEDTIME Qty: 30 2RF celecoxib 200 mg capsule See Rx Instructions .ROUTE .COMPLEX Qty: 30 2RF Dose Instruction: TAKE ONE CAPSULE BY MOUTH ONE TIME DAILY Rx Instructions: TAKE ONE CAPSULE BY MOUTH ONE TIME DAILY oxycodone 15 mg tablet 15 mg PO Q6H PRN (Reason: pain) Qty: 15 0RF oxycodone 15 mg tablet 15 mg PO TID PRN (Reason: pain) Qty: 15 0RF oxycodone 15 mg tablet 15 mg PO TID PRN (Reason: pain) Qty: 15 0RF Ajovy Syringe 225 mg/1.5 mL syringe 225 mg SUBCUT QMONTH Qty: 1.5 12RF Rx Instructions: failed aimovig and emgality or SE promethazine 25 mg tablet 6.25 mg PO TID PRN (Reason: nausea and vomiting) Qty: 20 2RF Rx Instructions: 3 doses during day; last dose no later than 4 hr before bedtime oxycodone 15 mg tablet 15 mg PO BID PRN (Reason: pain) Qty: 10 0RF oxycodone 15 mg tablet 15 mg PO ONCE Qty: 10 0RF oxycodone 15 mg tablet 15 mg PO ONCE Qty: 10 0RF amitriptyline 50 mg tablet 50 mg PO BEDTIME Qty: 90 1RF Ajovy Syringe 225 mg/1.5 mL syringe 225 mg SUBCUT QMONTH Qty: 1.5 11RF oxycodone 15 mg tablet 15 mg PO Q12H PRN (Reason: pain) Qty: 20 0RF promethazine 25 mg tablet 25 mg PO Q6HP PRN (Reason: nausea and vomiting) Qty: 20 11RF carisoprodol [Soma] 350 mg tablet 350 mg PO TID PRN (Reason: muscle pain) Qty: 20 0RF oxycodone 15 mg tablet 15 mg PO TID PRN (Reason: pain) Qty: 14 0RF lidocaine 5 % adhesive patch,medicated 1 patch TOP DAILY MDD 12 hours in a 24 hour period Qty: 30 5RF Rx Instructions: leave on most painful area for 12 hrs diazepam [Valium] 10 mg tablet 10 mg PO .COMPLEX PRN (Reason: anxiety) Qty: 10 0RF Rx Instructions: 10 mg PO 1-2 tabs pre-procedure and 1 tab npcturnally for possible steroid flare PRN; gabapentin 300 mg capsule 600 mg PO TID Referrals: Jessica Faulkner MD [Primary Care Provider] - Stand Alone Forms: Patient Portal/API ED Sign-out <Remy Melvin, DO - Last Filed: 11/03/23 13:54> Cosign ED Attending Cosignature Attestation: Dr Melvin Co-Sign Statement: I was available for consultation during this patient's emergency department visit. This chart is signed by myself for administrative purposes only. I did not have direct contact with this patient during this visit. They were seen independently by the APC.
== END 2023-11-02 18:31 | disposition home or self-care (01) ==
PROVIDERS: Emergency Provider Physician Assistant Medical; PCP Student in an Organized Health Care Education/Training Program
DX: J06.9 Acute upper respiratory infection, unspecified (principal)
CPT/HCPCS: 99281

== ENCOUNTER → 2023-11-30 15:09 | Outpatient (CLI) | payer OTHER, SELFPAY ==
--- NOTE | 2023-11-30 15:11 | DI.RAD.S_ITS ---
PROCEDURE: XR MANDIBLE MIN 4V INDICATIONS: Jaw Pain TECHNIQUE: 4 views of the mandible were acquired. COMPARISON: None. FINDINGS: Bones: No fractures or dislocations. No suspicious bony lesions. Soft tissues: Visualized sinuses appear clear. No suspicious soft tissue densities. IMPRESSION: No mandibular fracture. Bilateral temporomandibular joints are grossly intact. No finding to explain patient's symptoms. Dictated by: Samuel Ibarra M.D. on 11/30/2023 at 17:39 Approved by: Samuel Ibarra M.D. on 11/30/2023 at 17:40
== END ==
PROVIDERS: PCP Student in an Organized Health Care Education/Training Program; Referring Provider Family Medicine; Visit Provider Family Medicine
DX: R68.84 Jaw pain (principal)
CPT/HCPCS: 70110

== ENCOUNTER → 2023-12-28 10:04 | Outpatient (CLI) | payer OTHER, SELFPAY | PROVIDERS: PCP Student in an Organized Health Care Education/Training Program; Visit Provider Nurse Practitioner Family | DX: J02.9 Acute pharyngitis, unspecified (principal) | CPT/HCPCS: 87070 ==

== ENCOUNTER → 2024-02-20 09:03 | Outpatient (CLI) | payer OTHER, SELFPAY ==
--- NOTE | 2024-02-20 09:04 | DI.MRI.S_ITS ---
PROCEDURE: MR LUMBAR SPINE WO CON INDICATIONS: RADICULOPATHY/LUMBAR INJURY 2WKS AGO TECHNIQUE: Noncontrast sagittal T1 spin echo and T2 fast echo, sagittal STIR, and T2 fast spin echo through the lumbar spine. In cases with scoliosis, additional coronal T2 fast spin echo may be performed. COMPARISON: [facility]., MR, MR LUMBAR SPINE WITHOUT CONTRAST, 09/06/2022, 12:24. [facility], RF, SPINAL CORD STIMULATORS, 01/24/2023, 8:28. [facility], MR, MR LUMBAR SPINE WO CON, 11/23/2019, 9:57. FINDINGS: Image quality: Excellent. Alignment and Curvature: There is normal bony alignment. Bone Marrow: Marrow is of normal overall signal. No acute vertebral body compression fractures. Spinal Cord: Conus medullaris terminates at the severe level. Visualized cord demonstrates normal signal and size. Paraspinous Soft Tissues: No paravertebral masses. Epidural neural stimulator is noted from T12-L2. T12-L1: Mild disc desiccation and height loss. No canal stenosis. No foraminal narrowing. L1-L2: Normal appearance. L2-L3: Normal appearance. L3-L4: Normal appearance. L4-L5: Mild disc desiccation and height loss. Mild facet ligamentum flavum hypertrophy. No canal stenosis. No foraminal stenosis. There is a small posterior focal high-intensity zone. L5-S1: Moderate disc desiccation and height loss. Mild facet sclerosis. No canal stenosis. No foraminal stenosis. There is a small posterior focal high-intensity zone. IMPRESSION: 1. 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 2. No significant canal stenosis or foraminal narrowing of the lumbar spine. Dictated by: Lizeth Camilo M.D. on 02/20/2024 at 11:12 Approved by: Lizeth Camilo M.D. on 02/20/2024 at 11:16
== END ==
LOC: MRI 09:04
PROVIDERS: PCP Student in an Organized Health Care Education/Training Program; Referring Provider Physician Assistant; Visit Provider Physician Assistant
DX: M51.16 Intervertebral disc disorders with radiculopathy, lumbar region (principal); M51.17 Intervertebral disc disorders with radiculopathy, lumbosacral region; Z96.82 Presence of neurostimulator
CPT/HCPCS: 72148

== ENCOUNTER 2024-03-07 10:09 | Emergency (ER) | payer OTHER, SELFPAY ==
[2024-03-07 10:15] VITALS: BP 133/75; PULSE 68; RESP 14; TEMP 36.8; O2SAT 99; BMI 33.3
--- NOTE | 2024-03-07 13:43 | ED_ITS ---
HPI - Skin/Abscess/Foreign Bdy <Fatuma Nicolas PA-C - Last Filed: 03/07/24 13:53> General Chief complaint: Skin/Abscess/Foreign Body Stated complaint: Right eye pain Time Seen by Provider: 03/07/24 12:24 Source: patient Mode of arrival: Ambulatory Limitations: no limitations History of Present Illness HPI narrative: 43-year-old male with history of styes who does not wear contact lenses presents with concern for eye discomfort on the right upper eyelid. Patient was seen at walk-in clinic and sent to the ER due to concern for possible orbital cellulitis. He states the last 2 times he has had styes in the last couple of months they have started with pain and generalized swelling and it has taken a few days for an actual bump to show up. He says yesterday he started to feel pa in on the inside of his upper right eyelid towards his nose that felt very similar to a stye beginning. This morning when he woke up his upper eyelid was slightly swollen and more tender and uncomfortable. Denies any pain with moving his eyes, has had a small amount of discharge from his eye that is somewhat thick. Has not noticed any eye redness eye pain or itching. He does have some seasonal allergies and believes he sometimes rubs his eyes because of this. He does not think he got anything in his eye at work or at home that might have irritated his eye. He denies any other complaints or concerns including headache facial pain numbness or tingling or any other symptoms. Related Data Home Medications Medication Instructions Recorded Confirmed propranolol 80 mg capsule,24 80 mg PO DAILY 01/04/24 03/07/24 hr,extended release methocarbamol 750 mg tablet 750 mg PO 3XD 03/07/24 03/07/24 Previous Rx's Medication Instructions Recorded lidocaine HCl 2 % mucosal solution 1 applic mucous membrane DAILY PRN 11/02/23 (Lidocaine Viscous) pain #100 mL naloxone 4 mg/actuation nasal 4 mg intranasal Q2M PRN opioid 11/22/23 spray (Narcan) overdose #2 ea oxycodone 10 mg tablet 10 mg PO Q4H PRN pain #168 tabs 02/29/24 promethazine 25 mg tablet 25 mg PO Q6HP PRN nausea and 02/29/24 vomiting #30 tabs lisinopril 10 mg tablet 10 mg PO DAILY #30 tabs 03/03/24 amoxicillin 875 mg-potassium 1 tab PO BID #20 tabs 03/09/24 clavulanate 125 mg tablet Allergies Allergy/AdvReac Type Severity Reaction Status Date / Time duloxetine Allergy Severe Hallucinati Verified 03/07/24 10:15 ng dihydroergotamine Allergy Unknown RED SKIN, Verified 03/07/24 10:15 [DIHYDROERGOTAMINE] ITCHY, VERY HOT prochlorperazine Allergy Unknown Verified 03/07/24 10:15 [From COMPAZINE] diltiazem AdvReac Severe Blood Verified 03/07/24 10:15 pressure issues vde Allergy Unknown Uncoded 03/07/24 09:30 Review of Systems <Fatuma Nicolas PA-C - Last Filed: 03/07/24 13:53> Review of Systems Narrative: See HPI Patient History <Fatuma Nicolas PA-C - Last Filed: 03/07/24 13:53> Medical History (Updated 03/09/24 @ 10:10 by Maria A Shaffer DO) Facet arthropathy, lumbar Herniated nucleus pulposus, L5-S1 Surgical History History of shoulder surgery History of tonsillectomy and adenoidectomy History of hand surgery Family History Son Migraine Mother Colitis Asthma Social History Smoking Status: Former smoker Smoking Status: Former smoker Substance Use Type: marijuana Exam <Fatuma Nicolas PA-C - Last Filed: 03/07/24 13:53> Narrative Exam Narrative: GENERAL: [43] year old patient appears stated age. Well-developed patient, in mild distress. HEAD: Atraumatic. Normocephalic. EYES: Pupils equal round and reactive. Extraocular motions intact and pain-free. No scleral icterus. The right upper eyelid is slightly inflamed just above the lashes and slightly edematous it is tender to touch medially and to the mid eyelid most tender in 1 specific spot. There is very mild erythema present. With eversion of the lid there is no visible stye noted. Very slight injection of the right eye without visible drainage. ENT: Nose without bleeding, purulent drainage. Airway patent. NECK: Trachea midline. Non tender CARDIOVASCULAR: Regular rate and rhythm RESPIRATORY: No increased work of breathing or respiratory distress EXTREMITIES: Moving all extremities normal gait NEURO: AOx3. SKIN: See ice No rash or erythema of visible areas Initial Vital Signs Initial Vital Signs: Vital Signs Temperature 98.2 F 03/07/24 10:15 Pulse Rate 68 03/07/24 10:15 Respiratory Rate 14 03/07/24 10:15 Blood Pressure 133/75 03/07/24 10:15 Pulse Oximetry 99 03/07/24 10:15 Oxygen Delivery Method Room Air 03/07/24 10:15 <Abe Segovia MD - Last Filed: 03/15/24 15:18> Initial Vital Signs Initial Vital Signs: Vital Signs Temperature 98.2 F 03/07/24 10:15 Pulse Rate 68 03/07/24 10:15 Respiratory Rate 14 03/07/24 10:15 Blood Pressure 133/75 03/07/24 10:15 Pulse Oximetry 99 03/07/24 10:15 Oxygen Delivery Method Room Air 03/07/24 10:15 Course <Fatuma Nicolas PA-C - Last Filed: 03/07/24 13:53> Vital Signs Vital signs: Vital Signs - 8 hr 03/07/24 10:15 Temperature 98.2 F Pulse Rate 68 Respiratory Rate 14 Blood Pressure 133/75 Pulse Oximetry 99 Oxygen Delivery Method Room Air <Abe Segovia MD - Last Filed: 03/15/24 15:18> Vital Signs Vital signs: Vital Signs - 8 hr 03/07/24 10:15 Temperature 98.2 F Pulse Rate 68 Respiratory Rate 14 Blood Pressure 133/75 Pulse Oximetry 99 Oxygen Delivery Method Room Air MDM - Skin/Abscess/Foreign Bdy <Fatuma Nicolas PA-C - Last Filed: 03/07/24 13:53> Differential Diagnosis Differential diagnosis: Likely cellulitis and other (Stye) MDM Narrative Medical decision making narrative: Is a well-appearing 43-year-old male presenting with concern for right upper eyelid mild swelling since this morning with pain in this location since yesterday. Feels like previous styes prior to a lump developing. Patient was sent to ER from walk-in with concern for orbital cellulitis. On exam he has no evidence of this there is very subtle swelling on the upper eyelid just above the eyelashes but no tenderness, inflammation or pain with eye movements. A upper eyelid cellulitis is a possibility however given there is an area of point tenderness strongly suspect patient is developing a stye and has some generalized mild edema/swelling associated with this. Discussed return precautions with the patient, he is agreeable to the plan for topical are antibiotics and will seek re-evaluation if he feels this is not improving things along with warm compresses or if he is having new or worsening symptoms. Return precautions provided, follow-up plan discussed, all questions answered. Discharge Plan Departure Patient Disposition: Home Clinical Impression: Superficial swelling of eyelid Activity Restrictions/Additional Instructions: *You have been diagnosed with [eyelid swelling/inflammation, probable stye developing] *What to do: *Please continue to take your regular medications as directed. [1 ] New medication prescriptions sent to your pharmacy: [ ] [ ] New medication written as a paper prescription [ ] No new medications given *Please follow up with your primary care provider in 2-3 days, call for an appointment. Let them know you were seen in the Emergency Department and that we ask that you be seen in follow up. We will electronically transmit a record of today's note if your PCP is in our system. You have some mild swelling of your right upper eyelid and tenderness there that is most prominent in 1 specific spot, I suspect that you are developing a stye and this may pop up in the next couple of days. Please use clean warm compresses over this area multiple times per day, I have also prescribed antibiotic ointment for you to use in your eye. If you feel that the inflammation or pain is worsening and is not improving with these treatments please make sure you seek re-evaluation. I hope you feel better soon. *If you do not have a primary care provider please contact the [facility] Resource line at [phone]. They will ask some questions about your medical history and help get you set up with a doctor in the community. *Return to Emergency Department if you should have any new, worsening or concerning symptoms, such as [fever greater than 101 F, shaking chills, worsening pain, persistent vomiting or other bothersome symptoms] Prescriptions: No Action propranolol 80 mg capsule,extended release 24 hr 80 mg PO DAILY promethazine 25 mg tablet 25 mg PO Q6HP PRN (Reason: nausea and vomiting) Qty: 30 11RF oxycodone 10 mg tablet 10 mg PO Q4H PRN (Reason: pain) Qty: 168 0RF methocarbamol 750 mg tablet 750 mg PO 3XD naloxone [Narcan] 4 mg/actuation spray,non-aerosol 4 mg intranasal Q2M PRN (Reason: opioid overdose) Qty: 2 0RF Rx Instructions: spray 1 dose into ONE nostril; alternate nostrils w each dose until help arrives lisinopril 10 mg tablet 10 mg PO DAILY Qty: 30 1RF lidocaine HCl [Lidocaine Viscous] 2 % solution 1 applic mucous membrane DAILY PRN (Reason: pain) Qty: 100 0RF amoxicillin-pot clavulanate 875-125 mg tablet 1 tab PO BID Qty: 20 0RF Referrals: Jessica Faulkner MD [Primary Care Provider] - Stand Alone Forms: Patient Portal/API ED Sign-out <Abe Segovia MD - Last Filed: 03/15/24 15:18> Cosign ED Attending Coschristopherature Attestation: I was immediately available in the department for consultation. This documentation has been reviewed. Supervised by Abe Segovia MD
[2024-03-07 14:04] VITALS: BP 136/72; PULSE 78; RESP 18; TEMP 36.7; O2SAT 99
== END 2024-03-07 14:04 | disposition home or self-care (01) ==
PROVIDERS: Emergency Provider Student in an Organized Health Care Education/Training Program; PCP Student in an Organized Health Care Education/Training Program
DX: H57.11 Ocular pain, right eye (principal); R22.0 Localized swelling, mass and lump, head
CPT/HCPCS: 99281; 99283

== ENCOUNTER 2024-03-09 08:34 | Emergency (ER) | payer OTHER, SELFPAY ==
[2024-03-09 08:39] VITALS: BP 129/72; PULSE 70; RESP 18; TEMP 36.7; O2SAT 98; BMI 33.3
--- NOTE | 2024-03-09 09:48 | ED_ITS ---
HPI - Eye Problem General Chief complaint: Eye Problems Stated complaint: Rt eye infection Time Seen by Provider: 03/09/24 09:41 Source: patient Mode of arrival: Ambulatory History of Present Illness HPI Narrative: Patient is a 43-year-old male who does not wear eye contacts presenting today with right eye pain. He was seen and evaluated here 2 days ago for the same. He was given antibiotic drops but he reports that his upper lid is more swollen today than it has been previously. He was seen in December for a left lower lid swelling thought to be due to allergies. He has no significant drainage she reports it behind his eye hurt no significant erythema he does not have any sort of fever. Related Data Home Medications Medication Instructions Recorded Confirmed propranolol 80 mg capsule,24 80 mg PO DAILY 01/04/24 03/07/24 hr,extended release methocarbamol 750 mg tablet 750 mg PO 3XD 03/07/24 03/07/24 Previous Rx's Medication Instructions Recorded lidocaine HCl 2 % mucosal solution 1 applic mucous membrane DAILY PRN 11/02/23 (Lidocaine Viscous) pain #100 mL naloxone 4 mg/actuation nasal 4 mg intranasal Q2M PRN opioid 11/22/23 spray (Narcan) overdose #2 ea oxycodone 10 mg tablet 10 mg PO Q4H PRN pain #168 tabs 02/29/24 promethazine 25 mg tablet 25 mg PO Q6HP PRN nausea and 02/29/24 vomiting #30 tabs lisinopril 10 mg tablet 10 mg PO DAILY #30 tabs 03/03/24 efmjaoer-vgfooanxug-tsvccapt 3.5 0.5 inch EYE-RIGHT Q8H 7 days #3.5 03/07/24 mg-400 unit-10,000 unit/gram eye grams oint amoxicillin 875 mg-potassium 1 tab PO BID #20 tabs 03/09/24 clavulanate 125 mg tablet Allergies Allergy/AdvReac Type Severity Reaction Status Date / Time duloxetine Allergy Severe Hallucinati Verified 03/07/24 10:15 ng dihydroergotamine Allergy Unknown RED SKIN, Verified 03/07/24 10:15 [DIHYDROERGOTAMINE] ITCHY, VERY HOT prochlorperazine Allergy Unknown Verified 03/07/24 10:15 [From COMPAZINE] diltiazem AdvReac Severe Blood Verified 03/07/24 10:15 pressure issues vde Allergy Unknown Uncoded 03/07/24 09:30 Patient History Medical History (Updated 03/09/24 @ 10:10 by Maria A Shaffer DO) Facet arthropathy, lumbar Herniated nucleus pulposus, L5-S1 Surgical History History of shoulder surgery History of tonsillectomy and adenoidectomy History of hand surgery Family History Son Migraine Mother Colitis Asthma Social History Smoking Status: Former smoker Smoking Status: Former smoker Substance Use Type: marijuana Exam Initial Vital Signs Initial Vital Signs: Vital Signs Temperature 98.1 F 03/09/24 08:39 Pulse Rate 70 03/09/24 08:39 Respiratory Rate 18 03/09/24 08:39 Blood Pressure 129/72 03/09/24 08:39 Pulse Oximetry 98 03/09/24 08:39 Oxygen Delivery Method Room Air 03/09/24 08:39 GENERAL: Well-appearing, well-nourished and in no acute distress. Right eye was treated with proparacaine, stained with fluorescein. No dye uptake. No foreign body. Eyelid was inverted with Q-tip no obvious stye no significant swelling tear duct No significant periorbital erythema slight upper lid swelling but able to open eye pupils equal round and reactive to light CARDIOVASCULAR: peripheral pulses in tact, cap refill <2 sec RESPIRATORY: No respiratory distress, speaks in full sentences without difficulty EXTREMITIES: Normal range of motion, no clubbing or edema. Neurovascularly intact NEUROLOGICAL: Cranial nerves II through XII grossly intact. Normal gait and speech. SKIN: Warm, dry, no petechiae, no rashes or lesions. Course Orders Ordered: Discontinued Medications Fluorescein Sodium (Fluorescein 1 Mg Strip) 1 mg EYE-BOTH NOW ONE Stop: 03/09/24 09:50 Last Admin: 03/09/24 10:15 Dose: 1 mg Documented By: GRAZYNA Proparacaine HCl (Proparacaine 0.5% Ophth Alejandrina) 1 drops EYE-BOTH NOW ONE Stop: 03/09/24 09:50 Last Admin: 03/09/24 10:15 Dose: 1 drops Documented By: GRAZYNA Vital Signs Vital signs: Vital Signs - 8 hr 03/09/24 08:39 Temperature 98.1 F Pulse Rate 70 Respiratory Rate 18 Blood Pressure 129/72 Pulse Oximetry 98 Oxygen Delivery Method Room Air MDM - Eye Problem MDM Narrative Medical decision making narrative: Patient 43-year-old male presents today with persistent right eyelid swelling. It is swollen not significantly erythematous. No significant. Orbital swelling but there is some slight swelling of the upper lid. No significant swelling of the tear duct itself no obvious drainage either. Eye is stained there is no corneal abrasion or foreign body. Low suspicion for periorbital cellulitis. Possible reactive an allergic. Patient has been seen 3 times for this now at this time would encourage him to continue his antibiotic drops continue supportive care. However we will give him an antibiotic if re dness gets worse. If it also gets worse he is encouraged to return to be re- evaluated Discharge Plan Departure Patient Disposition: Home Clinical Impression: Conjunctivitis Instructions: Conjunctivitis, DI for Eye Allergic Reaction Activity Restrictions/Additional Instructions: *You have been diagnosed with conjunctivitis *What to do: At this time please continue your current regimen. I do not think he needs the antibiotic pills now. Please give it at least 3 more days. I encouraged warm compresses cool compresses. Whatever helps make it feel better. Expect to have eyelid swelling in the morning should improve throughout the day. If you sleep sitting upright or with many pillows this will help the swelling. *Continue to take medications as directed Augmentin 875 twice a day for 10 days Continue drops as previously prescribed *Follow up with your primary care provider in 2-3 days or call [phone] *Return to ER if you should have increasing pain swelling vision change significant redness fever greater than 100.4 or any new, worsening or concerning symptoms Prescriptions: New amoxicillin-pot clavulanate 875-125 mg tablet 1 tab PO BID Qty: 20 0RF No Action propranolol 80 mg capsule,extended release 24 hr 80 mg PO DAILY promethazine 25 mg tablet 25 mg PO Q6HP PRN (Reason: nausea and vomiting) Qty: 30 11RF oxycodone 10 mg tablet 10 mg PO Q4H PRN (Reason: pain) Qty: 168 0RF methocarbamol 750 mg tablet 750 mg PO 3XD naloxone [Narcan] 4 mg/actuation spray,non-aerosol 4 mg intranasal Q2M PRN (Reason: opioid overdose) Qty: 2 0RF Rx Instructions: spray 1 dose into ONE nostril; alternate nostrils w each dose until help arrives lisinopril 10 mg tablet 10 mg PO DAILY Qty: 30 1RF lidocaine HCl [Lidocaine Viscous] 2 % solution 1 applic mucous membrane DAILY PRN (Reason: pain) Qty: 100 0RF jltxfqas-vxbojtwstf-kffkvruzc 3.5-400-10,000 wi-qvkp-ehpy/g ointment 0.5 inch EYE-RIGHT Q8H 7 Days Qty: 3.5 0RF Referrals: Jessica Faulkner MD [Primary Care Provider] - Stand Alone Forms: Patient Portal/API
[2024-03-09] MEDS: FLUORESCEIN 1 MG STRIP EYE-BOTH (10:15)
[2024-03-09] MEDS: PROPARACAINE 0.5% OPHTH SOL 1 DROPS EYE-BOTH (10:15)
== END 2024-03-09 10:20 | disposition home or self-care (01) ==
PROVIDERS: Emergency Provider Emergency Medicine; PCP Student in an Organized Health Care Education/Training Program
DX: H10.9 Unspecified conjunctivitis (principal)
CPT/HCPCS: 99282; 99283

== ENCOUNTER → 2024-03-27 16:45 | Outpatient (CLI) | payer OTHER, SELFPAY ==
--- NOTE | 2024-03-27 16:50 | EKG_ITS ---
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
[2024-03-27 17:36] LABS: Add Manual Diff / Slide Review NO; Basophils Absolute Auto 100 /uL (0-100); Basophils Percent Auto 1.1 % (0-2); Eosinophils Absolute Auto 100 /uL (0-450); Eosinophils Percent Auto 1.2 % (2-4); Hematocrit 44.1 % (41-53); Hemoglobin 15.1 g/dL (13.5-17.5); Lymphocytes Absolute Auto 3900 /uL (1100-4500); Lymphocytes Percent Auto 40.6 % (25-40); Mean Corpuscular HGB Conc 34.3 % (30-36); Mean Corpuscular Hemoglobin 29.8 PG (26-34); Mean Corpuscular Volume 86.8 fL (80-100); Monocytes Absolute Auto 700 /uL (0-900); Monocytes Percent Auto 6.9 % (3-14); Neutrophils Absolute Auto 4800 /uL (1500-7000); Neutrophils Percent Auto 50.2 % (50-75); Platelet Count 454 X10^3/uL (150-400); Red Blood Cell Count 5.08 X10^6/uL (4.5-5.9); Red Cell Distribution Width 13.6 % (11.6-14.8); White Blood Cell Count 9.5 X10^3/uL (4.5-11.0)
[2024-03-27 17:40] LABS: Prothrombin Time 11.1 SECONDS (9.4-12.5)
[2024-03-27 17:42] LABS: PTT Partial Thromboplastin Tim 40 SECONDS (25.1-36.5)
[2024-03-27 17:56] LABS: BUN Creatinine Ratio 15.9 (6-22); Blood Urea Nitrogen 14 mg/dL (9-20); Calcium 10.1 mg/dL (8.4-10.2); Carbon Dioxide 26 mmol/L (22-32); Chloride 104 mmol/L (98-107); Estimated Glomerular Filt Rate > 60 mL/min (>60); Glucose 95 mg/dL (70-100); HEMOLYSIS < 15 (0-50); Potassium 4.4 mmol/L (3.4-5.1); Sodium 138 mmol/L (137-145)
== END ==
PROVIDERS: PCP Student in an Organized Health Care Education/Training Program; Referring Provider Physical Medicine & Rehabilitation; Visit Provider Physical Medicine & Rehabilitation
DX: Z01.818 Encounter for other preprocedural examination (principal); Z01.812 Encounter for preprocedural laboratory examination; Z51.81 Encounter for therapeutic drug level monitoring
CPT/HCPCS: 36415; 80048; 85025; 85610; 85730; 93005

== ENCOUNTER 2024-04-17 14:03 | Emergency (ER) | payer OTHER, SELFPAY ==
[2024-04-17 14:13] VITALS: BP 140/90; PULSE 75; RESP 16; TEMP 36.6; O2SAT 97; BMI 34.4
--- NOTE | 2024-04-17 14:19 | DI.RAD.S_ITS ---
PROCEDURE: XR CHEST 1V INDICATIONS: chest pain TECHNIQUE: One view of the chest was acquired. COMPARISON: [facility], FER, XR CHEST 1V, 07/25/2021, 9:42. [facility], , CHEST 2 VIEW, 06/20/2016, 11:32. FINDINGS: Surgical changes and devices: Spinal stimulator leads. Lungs and pleura: Lungs are clear. No pleural effusions or pneumothorax. Mediastinum: Mediastinal contours appear normal. Heart size is normal. Bones and chest wall: No suspicious bony lesions. Overlying soft tissues appear unremarkable. IMPRESSION: No acute cardiopulmonary abnormality is seen. Dictated by: Yuri Rivera M.D. on 04/17/2024 at 14:54 Approved by: Yuri Rivera M.D. on 04/17/2024 at 14:55
--- NOTE | 2024-04-17 14:27 | EKG_ITS ---
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
[2024-04-17 14:34] LABS: Add Manual Diff / Slide Review NO; Basophils Absolute Auto 100 /uL (0-100); Basophils Percent Auto 1.1 % (0-2); Eosinophils Absolute Auto 100 /uL (0-450); Eosinophils Percent Auto 1.7 % (2-4); Hematocrit 40.8 % (41-53); Hemoglobin 13.9 g/dL (13.5-17.5); Lymphocytes Absolute Auto 2500 /uL (1100-4500); Lymphocytes Percent Auto 36.2 % (25-40); Mean Corpuscular HGB Conc 34.1 % (30-36); Mean Corpuscular Hemoglobin 29.8 PG (26-34); Mean Corpuscular Volume 87.5 fL (80-100); Monocytes Absolute Auto 700 /uL (0-900); Neutrophils Absolute Auto 3500 /uL (1500-7000); Platelet Count 387 X10^3/uL (150-400); Red Blood Cell Count 4.66 X10^6/uL (4.5-5.9); Red Cell Distribution Width 13.6 % (11.6-14.8); White Blood Cell Count 6.8 X10^3/uL (4.5-11.0)
[2024-04-17 14:48] LABS: Alanine Aminotransferase 51 IU/L (<50); Albumin 4.7 g/dL (3.5-5.0); Albumin Globulin Ratio 1.7 (1.0-2.8); Alkaline Phosphatase 44 U/L (38-126); Aspartate Aminotransferase 40 IU/L (17-59); BUN Creatinine Ratio 18.2 (6-22); Bilirubin Total 0.6 mg/dL (0.2-1.3); Blood Urea Nitrogen 14 mg/dL (9-20); Calcium 9.2 mg/dL (8.4-10.2); Carbon Dioxide 23 mmol/L (22-32); Chloride 107 mmol/L (98-107); Creatine Kinase 132 U/L (55-170); Estimated Glomerular Filt Rate > 60 mL/min (>60); Globulin 2.8 g/dL (1.7-4.1); Glucose 98 mg/dL (70-100); HEMOLYSIS 20 (0-50); Lipase 105 U/L (23-300); Magnesium 2.1 mg/dL (1.6-2.3); Potassium 4.3 mmol/L (3.4-5.1); Sodium 137 mmol/L (137-145); Total Protein 7.5 g/dL (6.3-8.2)
[2024-04-17 14:50] VITALS: PULSE 79; RESP 23; O2SAT 98
[2024-04-17 14:51] VITALS: BP 125/82; PULSE 73; RESP 19; O2SAT 100
[2024-04-17 14:57] LABS: Prothrombin Time 11.4 SECONDS (9.4-12.5)
[2024-04-17 14:59] LABS: NT-proBNP (BNP-Adult 18+) 34 pg/mL (<125); Troponin I < 0.012 ng/mL (0.01-0.034)
[2024-04-17 15:00] VITALS: BP 127/87; PULSE 78; RESP 21; O2SAT 100
[2024-04-17 15:00] LABS: PTT Partial Thromboplastin Tim 40 SECONDS (25.1-36.5)
[2024-04-17] MEDS: ASPIRIN 81 MG CHEW TAB 324 MG PO (15:01)
--- NOTE | 2024-04-17 15:11 | ED.CHESTPAIN ---
HPI - Chest Pain General Chief Complaint: Chest Pain Stated Complaint: tightness in chest, feeling faint Time Seen by Provider: 04/17/24 14:56 Source: patient and family Mode of arrival: Ambulatory History of Present Illness HPI narrative: Patient is a 43-year-old male who is here for evaluation of chest tightness and feeling faint. He has had episodes similar to this in the past in his current episodes have been going on for the past several days. Had about noon today the symptoms seemed to get a little bit worse. He was on lisinopril. He states he would similar symptoms happened after he was on lisinopril. He came off the medicine and then he had spikes in both his heart rate and blood pressure and since there was no definitive cause that the lisinopril was causing the symptoms as why they put him back on this medication. He was having some right-sided chest discomfort. No nausea or vomiting. Does have chronic nasal drainage. No fevers. No lower extremity swelling. Related Data Home Medications Medication Instructions Recorded Confirmed propranolol 80 mg capsule,24 80 mg PO DAILY 01/04/24 03/28/24 hr,extended release methocarbamol 750 mg tablet 750 mg PO 3XD 03/07/24 03/28/24 Previous Rx's Medication Instructions Recorded lidocaine HCl 2 % mucosal solution 1 applic mucous membrane DAILY PRN 11/02/23 (Lidocaine Viscous) pain #100 mL naloxone 4 mg/actuation nasal 4 mg intranasal Q2M PRN opioid 11/22/23 spray (Narcan) overdose #2 ea promethazine 25 mg tablet 25 mg PO Q6HP PRN nausea and 02/29/24 vomiting #30 tabs lisinopril 10 mg tablet 10 mg PO DAILY #30 tabs 03/03/24 amoxicillin 875 mg-potassium 1 tab PO BID #20 tabs 03/09/24 clavulanate 125 mg tablet oxycodone 10 mg tablet 10 mg PO Q4H PRN pain #168 tabs 03/28/24 Allergies Allergy/AdvReac Type Severity Reaction Status Date / Time duloxetine Allergy Severe Hallucinati Verified 03/28/24 11:17 ng dihydroergotamine Allergy Unknown RED SKIN, Verified 03/28/24 11:17 [DIHYDROERGOTAMINE] ITCHY, VERY HOT prochlorperazine Allergy Unknown Verified 03/28/24 11:17 [From COMPAZINE] diltiazem AdvReac Severe Blood Verified 03/28/24 11:17 pressure issues vde Allergy Unknown Uncoded 03/28/24 11:17 Review of Systems Review of Systems ROS Unobtainable: All systems reviewed & are unremarkable except as noted in HPI and below Patient History Medical History (Updated 04/17/24 @ 16:27 by Remy Melvin DO) Facet arthropathy, lumbar Herniated nucleus pulposus, L5-S1 Surgical History History of shoulder surgery History of tonsillectomy and adenoidectomy History of hand surgery Family History Son Migraine Mother Colitis Asthma Social History Smoking Status: Former smoker Smoking Status: Former smoker Substance Use Type: does not use Exam Initial Vital Signs Initial Vital Signs: Vital Signs Temperature 97.9 F 04/17/24 14:13 Pulse Rate 75 04/17/24 14:13 Respiratory Rate 16 04/17/24 14:13 Blood Pressure 140/90 04/17/24 14:13 Pulse Oximetry 97 04/17/24 14:13 Oxygen Delivery Method Room Air 04/17/24 14:13 Const General: cooperative, comfortable and No ill appearing HENMT Head: normal to inspection and normocephalic Resp Effort & Inspection: normal respiratory effort Auscultation: clear to auscultation bilaterally Cardio Rate: regular rate Rhythm: regular rhythm GI Inspection: normal to inspection and non-distended Neuro General: patient alert, patient awake and moves all extremities Extrem General: normal to inspection and capillary refill normal Course Orders Ordered: ED Orders 04/17/24 14:19 XR chest 1V Stat EKG-12 Lead Stat 04/17/24 14:27 Complete Blood Count AUTO DIFF Stat Comprehensive Metabolic Panel Stat Lipase Stat Magnesium Stat NT-proBNP (BNP-Adult 18+) Stat PTT Partial Thromboplastin Ahsan Stat Prothrombin Time INR Stat Troponin & CK Cardiac Panel Stat Discontinued Medications Aspirin (Aspirin 81 Mg Chew Tab) 324 mg PO NOW ONE Stop: 04/17/24 14:19 Last Admin: 04/17/24 15:01 Dose: 324 mg Documented By: RLS Vital Signs Vital signs: Vital Signs - 8 hr 04/17/24 14:13 04/17/24 14:50 04/17/24 14:51 Temperature 97.9 F Pulse Rate 75 79 73 Respiratory Rate 16 23 19 Blood Pressure 140/90 Pulse Oximetry 97 98 100 Oxygen Delivery Method Room Air Room Air 04/17/24 14:51 04/17/24 15:00 04/17/24 15:00 Temperature Pulse Rate 78 Respiratory Rate 21 Blood Pressure 125/82 127/87 Pulse Oximetry 100 Oxygen Delivery Method 04/17/24 15:30 04/17/24 15:30 Temperature Pulse Rate 79 Respiratory Rate 22 Blood Pressure 130/85 Pulse Oximetry 99 Oxygen Delivery Method MDM - Chest Pain Lab Data Attestation: I reviewed the patient's lab results. 04/17/24 14:27 04/17/24 14:27 Labs: Lab Results 04/17/24 Range/Units 14:27 WBC 6.8 (4.5-11.0) X10^3/uL RBC 4.66 (4.5-5.9) X10^6/uL Hgb 13.9 (13.5-17.5) g/dL Hct 40.8 L (41-53) % MCV 87.5 (80-100) fL MCH 29.8 (26-34) PG MCHC 34.1 (30-36) % RDW 13.6 (11.6-14.8) % Plt Count 387 (150-400) X10^3/uL Neut % (Auto) 51.0 (50-75) % Lymph % (Auto) 36.2 (25-40) % [place] % (Auto) 10.0 (3-14) % Eos % (Auto) 1.7 L (2-4) % Baso % (Auto) 1.1 (0-2) % Neut # (Auto) 3500 (4398-8313) /uL Lymph # (Auto) 2500 (9761-3739) /uL [place] # (Auto) 700 (0-900) /uL Eos # (Auto) 100 (0-450) /uL Baso # (Auto) 100 (0-100) /uL PT 11.4 (9.4-12.5) SECONDS INR 1.0 (0.9-1.3) APTT 40 H (25.1-36.5) SECONDS Sodium 137 (137-145) mmol/L Potassium 4.3 (3.4-5.1) mmol/L Chloride 107 (98-107) mmol/L Carbon Dioxide 23 (22-32) mmol/L BUN 14 (9-20) mg/dL Creatinine 0.77 (0.66-1.25) mg/dL Estimated GFR > 60 (>60) mL/min BUN/Creatinine Ratio 18.2 (6-22) Glucose 98 (70-100) mg/dL Calcium 9.2 (8.4-10.2) mg/dL Magnesium 2.1 (1.6-2.3) mg/dL Total Bilirubin 0.6 (0.2-1.3) mg/dL AST 40 (17-59) IU/L ALT 51 H (<50) IU/L Alkaline Phosphatase 44 (38-126) U/L Total Creatine Kinase 132 (55-170) U/L Troponin I < 0.012 (0.01-0.034) ng/mL NT-Pro-B Natriuret Pep 34 (<125) pg/mL Total Protein 7.5 (6.3-8.2) g/dL Albumin 4.7 (3.5-5.0) g/dL Globulin 2.8 (1.7-4.1) g/dL Albumin/Globulin Ratio 1.7 (1.0-2.8) Lipase 105 (23-300) U/L Imaging Data Chest x-ray: Radiologist's Impression: PROCEDURE: XR CHEST 1V INDICATIONS: chest pain TECHNIQUE: One view of the chest was acquired. COMPARISON: [facility], XR CHEST 1V, 07/25/2021, 9:42. [facility], CHEST 2 VIEW, 06/20/2016, 11:32. FINDINGS: Surgical changes and devices: Spinal stimulator leads. Lungs and pleura: Lungs are clear. No pleural effusions or pneumothorax. Mediastinum: Mediastinal contours appear normal. Heart size is normal. Bones and chest wall: No suspicious bony lesions. Overlying soft tissues appear unremarkable. IMPRESSION: No acute cardiopulmonary abnormality is seen. ECG Data Attestation: I personally reviewed and interpreted this ECG as follows: Interpretation: Sinus rhythm Ventricular rate of 76 Normal axis Normal QRS Normal QTC No ST T wave changes MDM Narrative Medical decision making narrative: Workup here in the emergency department is very reassuring. Low suspicion for ACS, is PERC negative, chest x-ray is unremarkable. No indication for antibiotics. Is afebrile. Potentially could be a reaction to his lisinopril as he states that this is very similar to the reaction that he would the last time he was on this medicine. The plan will be to have him stop his lisinopril. 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 He was given return precautions. He expressed understanding and agreement. Discharge Plan Departure Patient Disposition: Home Clinical Impression: Atypical chest pain, Shortness of breath Instructions: DI for Atypical Chest Pain Activity Restrictions/Additional Instructions: I do recommend that you stop taking your lisinopril as this maybe a reaction to that medication. Continue to take your blood pressure at home like we discussed. Contact your primary doctor and your liaison inspection laboratory assistant for a follow-up. Return to the emergency department for new or worsening symptoms. Prescriptions: No Action propranolol 80 mg capsule,extended release 24 hr 80 mg PO DAILY promethazine 25 mg tablet 25 mg PO Q6HP PRN (Reason: nausea and vomiting) Qty: 30 11RF oxycodone 10 mg tablet 10 mg PO Q4H PRN (Reason: pain) Qty: 168 0RF methocarbamol 750 mg tablet 750 mg PO 3XD naloxone [Narcan] 4 mg/actuation spray,non-aerosol 4 mg intranasal Q2M PRN (Reason: opioid overdose) Qty: 2 0RF Rx Instructions: spray 1 dose into ONE nostril; alternate nostrils w each dose until help arrives lisinopril 10 mg tablet 10 mg PO DAILY Qty: 30 1RF lidocaine HCl [Lidocaine Viscous] 2 % solution 1 applic mucous membrane DAILY PRN (Reason: pain) Qty: 100 0RF amoxicillin-pot clavulanate 875-125 mg tablet 1 tab PO BID Qty: 20 0RF Referrals: Jessica Faulkner MD [Primary Care Provider] - Stand Alone Forms: Patient Portal/API
[2024-04-17 15:30] VITALS: BP 130/85; PULSE 79; RESP 22; O2SAT 99
[2024-04-17 16:00] VITALS: BP 123/77; PULSE 73; RESP 19; O2SAT 96
== END 2024-04-17 16:43 | disposition home or self-care (01) ==
PROVIDERS: Emergency Provider Emergency Medicine; PCP Student in an Organized Health Care Education/Training Program
DX: R07.89 Other chest pain (principal); R06.02 Shortness of breath; Z79.899 Other long term (current) drug therapy
CPT/HCPCS: 36415; 71045; 80053; 82550; 83690; 83735; 83880; 84484; 85025; 85610; 85730; 93005; 99284

== ENCOUNTER → 2024-05-24 08:50 | Outpatient (CLI) | payer OTHER, SELFPAY ==
[2024-05-24 09:39] LABS: Add Manual Diff / Slide Review NO; Basophils Absolute Auto 0 /uL (0-100); Basophils Percent Auto 0.7 % (0-2); Eosinophils Absolute Auto 200 /uL (0-450); Eosinophils Percent Auto 2.4 % (2-4); Hematocrit 40.1 % (41-53); Hemoglobin 13.7 g/dL (13.5-17.5); Lymphocytes Absolute Auto 3100 /uL (1100-4500); Lymphocytes Percent Auto 43.5 % (25-40); Mean Corpuscular HGB Conc 34.1 % (30-36); Mean Corpuscular Hemoglobin 29.6 PG (26-34); Mean Corpuscular Volume 86.8 fL (80-100); Monocytes Absolute Auto 600 /uL (0-900); Monocytes Percent Auto 8.1 % (3-14); Neutrophils Absolute Auto 3200 /uL (1500-7000); Neutrophils Percent Auto 45.3 % (50-75); Platelet Count 376 X10^3/uL (150-400); Red Blood Cell Count 4.62 X10^6/uL (4.5-5.9); Red Cell Distribution Width 13.4 % (11.6-14.8); White Blood Cell Count 7.1 X10^3/uL (4.5-11.0)
[2024-05-24 10:08] LABS: Alanine Aminotransferase 63 IU/L (<50); Albumin 4.5 g/dL (3.5-5.0); Albumin Globulin Ratio 1.9 (1.0-2.8); Alkaline Phosphatase 45 U/L (38-126); Aspartate Aminotransferase 44 IU/L (17-59); BUN Creatinine Ratio 17.7 (6-22); Bilirubin Total 0.5 mg/dL (0.2-1.3); Blood Urea Nitrogen 17 mg/dL (9-20); Calcium 9.9 mg/dL (8.4-10.2); Carbon Dioxide 23 mmol/L (22-32); Chloride 105 mmol/L (98-107); Cholesterol 193 mg/dL (140-199); Estimated Glomerular Filt Rate > 60 mL/min (>60); Globulin 2.4 g/dL (1.7-4.1); Glucose 95 mg/dL (70-100); HDL Cholesterol 35 mg/dL (40-60); HEMOLYSIS < 15 (0-50); LDL Cholesterol Calculated 90 mg/dL (<100); Potassium 4.6 mmol/L (3.4-5.1); Sodium 137 mmol/L (137-145); Total Protein 6.9 g/dL (6.3-8.2); Triglycerides 338 mg/dL (35-150)
[2024-05-24 10:09] LABS: Hemoglobin A1C% w Est Avg Glu 5.2 % (4.0-6.0)
[2024-05-24 10:40] LABS: TSH w/ Reflex to FT4 2.38 uIU/mL (0.47-4.68)
[2024-05-24 10:41] LABS: Testosterone 249 ng/dL (132-813)
== END ==
PROVIDERS: PCP Student in an Organized Health Care Education/Training Program; Referring Provider Student in an Organized Health Care Education/Training Program; Visit Provider Student in an Organized Health Care Education/Training Program
DX: N52.9 Male erectile dysfunction, unspecified (principal); I10 Essential (primary) hypertension
CPT/HCPCS: 36415; 80053; 80061; 83036; 84403; 84443; 85025

== ENCOUNTER → 2024-06-14 08:06 | Outpatient (CLI) | payer OTHER, SELFPAY ==
[2024-06-14 10:44] LABS: Follicle Stimulating Hormone 3.64 mIU/mL
== END ==
PROVIDERS: PCP Student in an Organized Health Care Education/Training Program; Referring Provider Student in an Organized Health Care Education/Training Program; Visit Provider Student in an Organized Health Care Education/Training Program
DX: N52.9 Male erectile dysfunction, unspecified (principal)
CPT/HCPCS: 36415; 83001; 83002; 84402; 84403

== ENCOUNTER → 2024-06-25 08:59 | Outpatient (CLI) | payer OTHER, SELFPAY ==
[2024-06-25 10:43] LABS: HEMOLYSIS < 15 (0-50); Iron 84 ug/dL (49-181)
[2024-06-25 10:57] LABS: Percent Iron Saturation 26 % (20-50); Total Iron Binding Capacity 323 ug/dL (261-462); Transferrin 270 mg/dL (206-381)
[2024-06-25 11:00] LABS: Prolactin 13.4 ng/mL (3.7-17.9)
[2024-06-25 11:01] LABS: Free T4, Direct Thyroxine 0.76 ng/dL (0.78-2.19)
[2024-06-25 11:15] LABS: Thyroid Stimulating Hormone 1.84 uIU/mL (0.47-4.68)
[2024-06-25 11:18] LABS: Ferritin 84 ng/mL (18-464)
== END ==
PROVIDERS: PCP Student in an Organized Health Care Education/Training Program; Referring Provider Student in an Organized Health Care Education/Training Program; Visit Provider Student in an Organized Health Care Education/Training Program
DX: R79.89 Other specified abnormal findings of blood chemistry (principal); N52.9 Male erectile dysfunction, unspecified
CPT/HCPCS: 36415; 82728; 83540; 83550; 84146; 84439; 84443

== ENCOUNTER → 2024-07-12 10:08 | Outpatient (CLI) | payer OTHER, SELFPAY ==
--- NOTE | 2024-07-12 10:09 | DI.MRI.S_ITS ---
PROCEDURE: MR BRAIN (PITUITARY) WWO CON INDICATIONS: secondary hypogonadism TECHNIQUE: Noncontrast sagittal and axial FLAIR, axial gradient echo, axial diffusion and ADC through the brain. Thin-slice sagittal and coronal T1 spin echo, coronal T2 fast spin echo through the pituitary. After the administration contrast, optional dynamic coronal T1 spin echo, thin-slice coronal and sagittal T1 spin echo images through the pituitary fossa; axial and coronal and sagittal T1 spin echo with fat saturation through the brain. COMPARISON: None. FINDINGS: Image quality: This examination is limited by involuntary motion artifact. Pituitary Gland: The pituitary gland demonstrates normal signal and bulk. On the postcontrast imaging, no masses or abnormally enhancing areas are seen. The pituitary stalk and infundibulum have an unremarkable appearance. On the precontrast sagittal T1-weighted images, there is a posterior pituitary bright spot seen, although it is seen partially located along the left aspect of the pituitary. The optic chiasm and the ventral forebrain have an unremarkable appearance. CSF Spaces: Ventricles are normal in size and shape. Basal cisterns are patent. No extra-axial fluid collections. Brain: No intracranial bleeds or mass effects. No abnormal intracranial enhancement. Hardy-white matter interface is intact. Diffusion weighted images demonstrate no acute ischemic insults. Brainstem is normal. Normal intravascular flow voids are present. Skull and face: Calvarial marrow is normal in signal. Orbits appear normal. Sinuses: Sinuses and mastoids are clear. IMPRESSION: No pituitary masses or abnormal enhancement can be seen. 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 This is regarded to be unlikely to be a cause of the patient's presenting symptoms. Dictated by: Dano Koehler M.D. on 07/14/2024 at 10:57 Transcribed by: SAM on 07/14/2024 at 11:10 Approved by: Dano Koehler M.D. on 07/14/2024 at 11:24
== END ==
LOC: MRI 10:09
PROVIDERS: PCP Student in an Organized Health Care Education/Training Program; Referring Provider Student in an Organized Health Care Education/Training Program; Visit Provider Student in an Organized Health Care Education/Training Program
DX: E29.1 Testicular hypofunction (principal); R79.89 Other specified abnormal findings of blood chemistry
CPT/HCPCS: 70553; A9579

== ENCOUNTER → 2024-11-20 14:34 | Outpatient (CLI) | payer OTHER, SELFPAY | LOC: PHYS 14:35 | PROVIDERS: Family Provider Student in an Organized Health Care Education/Training Program; PCP Student in an Organized Health Care Education/Training Program; Referring Provider Student in an Organized Health Care Education/Training Program; Visit Provider Student in an Organized Health Care Education/Training Program | DX: R20.0 Anesthesia of skin (principal); R20.2 Paresthesia of skin | CPT/HCPCS: 95885; 95886; 95913 ==

== ENCOUNTER → 2025-02-02 08:08 | Outpatient (CLI) | payer OTHER, SELFPAY ==
[2025-02-02 09:11] LABS: Add Manual Diff / Slide Review NO; Basophils Absolute Auto 100 /uL (0-100); Basophils Percent Auto 0.8 % (0-2); Eosinophils Absolute Auto 200 /uL (0-450); Eosinophils Percent Auto 2.9 % (2-4); Hematocrit 45.9 % (41-53); Hemoglobin 15.4 g/dL (13.5-17.5); Lymphocytes Absolute Auto 2600 /uL (1100-4500); Lymphocytes Percent Auto 43.8 % (25-40); Mean Corpuscular HGB Conc 33.7 % (30-36); Mean Corpuscular Hemoglobin 29.1 PG (26-34); Mean Corpuscular Volume 86.3 fL (80-100); Monocytes Absolute Auto 500 /uL (0-900); Monocytes Percent Auto 7.5 % (3-14); Neutrophils Absolute Auto 2700 /uL (1500-7000); Platelet Count 332 X10^3/uL (150-400); Red Blood Cell Count 5.31 X10^6/uL (4.5-5.9); Red Cell Distribution Width 14.1 % (11.6-14.8)
[2025-02-02 09:46] LABS: Alanine Aminotransferase 42 IU/L (<50); Albumin 4.8 g/dL (3.5-5.0); Alkaline Phosphatase 43 U/L (38-126); Aspartate Aminotransferase 39 IU/L (17-59); BUN Creatinine Ratio 13.4 (6-22); Bilirubin Total 0.7 mg/dL (0.2-1.3); Blood Urea Nitrogen 13 mg/dL (9-20); Calcium 9.8 mg/dL (8.4-10.2); Carbon Dioxide 28 mmol/L (22-32); Chloride 102 mmol/L (98-107); Cholesterol 222 mg/dL (140-199); Estimated Glomerular Filt Rate > 60 mL/min (>60); Globulin 2.4 g/dL (1.7-4.1); Glucose 103 mg/dL (70-99); HDL Cholesterol 34 mg/dL (40-60); HEMOLYSIS < 15 (0-50); LDL Cholesterol Calculated 119 mg/dL (<100); Potassium 4.8 mmol/L (3.4-5.1); Sodium 137 mmol/L (137-145); Total Protein 7.2 g/dL (6.3-8.2); Triglycerides 344 mg/dL (35-150)
== END ==
PROVIDERS: Family Provider Student in an Organized Health Care Education/Training Program; PCP Student in an Organized Health Care Education/Training Program; Referring Provider Student in an Organized Health Care Education/Training Program; Visit Provider Student in an Organized Health Care Education/Training Program
DX: E29.1 Testicular hypofunction (principal)
CPT/HCPCS: 36415; 80053; 80061; 85025

== ENCOUNTER → 2025-02-09 10:04 | Outpatient (CLI) | payer OTHER, SELFPAY ==
[2025-02-09 11:09] LABS: Influenza A - CEPHEID Flu A NEGATIVE (NEGATIVE); Influenza B - CEPHEID Flu B NEGATIVE (NEGATIVE); Respiratory Syncytial Virus Negative (Negative)
[2025-02-09 11:31] LABS: COVID-19 CEPHEID 4-PLEX PCR Negative (Negative)
== END ==
PROVIDERS: Family Provider Student in an Organized Health Care Education/Training Program; PCP Student in an Organized Health Care Education/Training Program; Referring Provider Nurse Practitioner Family; Visit Provider Nurse Practitioner Family
DX: R05.1 Acute cough (principal)
CPT/HCPCS: 0241U; 87070

== ENCOUNTER → 2025-02-17 09:41 | Outpatient (CLI) | payer OTHER, SELFPAY ==
--- NOTE | 2025-02-17 09:43 | DI.RAD.S_ITS ---
PROCEDURE: XR WRIST RT MIN 3V INDICATIONS: bilateral wrist pain TECHNIQUE: Four views of the right wrist were acquired. COMPARISON: None. FINDINGS: Bones: A dorsal plate and screws transfix an old solidly unified fracture of the 3rd metacarpal diaphysis. Anatomic alignment. No other osseous abnormality. Joints: Mild degeneration distal radial ulnar and 1st CMC noted Soft tissues: No soft tissue abnormality. IMPRESSION: Degeneration. Dictated by: David London M.D. on 02/17/2025 at 13:17 Approved by: David London M.D. on 02/17/2025 at 13:19
--- NOTE | 2025-02-17 09:43 | DI.RAD.S_ITS ---
PROCEDURE: XR WRIST LT MIN 3V INDICATIONS: bilateral wrist pain TECHNIQUE: Four views of the left wrist were acquired. COMPARISON: None. FINDINGS: Bones: There are no osseous abnormalities Joints: The joint spaces are normal in width and alignment without arthritic change. Soft tissues: Mild soft tissue swelling appreciated IMPRESSION: Normal. Dictated by: David London M.D. on 02/17/2025 at 10:46 Approved by: David London M.D. on 02/17/2025 at 10:47
== END ==
PROVIDERS: Family Provider Student in an Organized Health Care Education/Training Program; PCP Student in an Organized Health Care Education/Training Program; Referring Provider Orthopaedic Surgery; Visit Provider Orthopaedic Surgery
DX: M25.532 Pain in left wrist (principal); M25.531 Pain in right wrist; M19.031 Primary osteoarthritis, right wrist
CPT/HCPCS: 73110

== ENCOUNTER 2025-03-11 10:18 | Emergency (ER) | payer OTHER, SELFPAY ==
[2025-03-11] VITALS (12 sets, daily range): BP systolic 119–139; BP diastolic 57–86; PULSE 69–114; RESP 14–25; TEMP 36.9; O2SAT 93–98; BMI 34.9
--- NOTE | 2025-03-11 10:37 | DI.RAD.S_ITS ---
PROCEDURE: XR CHEST 1V INDICATIONS: Chest Pain TECHNIQUE: One view of the chest was acquired. COMPARISON: [facility], CR, XR CHEST 1V, 04/17/2024, 14:35. FINDINGS: Surgical changes and devices: Stimulator leads are seen. Lungs and pleura: Lungs are clear. No pleural effusions or pneumothorax. Mediastinum: Mediastinal contours appear normal. Heart size is normal. Bones and chest wall: No suspicious bony lesions. Overlying soft tissues appear unremarkable. IMPRESSION: No acute cardiopulmonary pathology. Dictated by: Samuel Ibarra M.D. on 03/11/2025 at 11:04 Approved by: Samuel Ibarra M.D. on 03/11/2025 at 11:07
--- NOTE | 2025-03-11 10:42 | EKG_ITS ---
[address] [address] Test Date: 2025-03-11 Pat Name: Tanvir Dumont Department: Room: Gender: Male Icd 9 Coder: CHAN : [id number] Requested By: Order Number: [id number] Reading MD: Lazaro Cisneros Measurements Intervals [place] Rate: 73 P: 8 PA: 80 QRS: 0 QRSD: 96 T: 34 QT: 378 QTc: 416 Interpretive Statements AV dual-paced rhythm Electronically Signed On 03-13-2025 0:11:32 PDT by Lazaro Cisneros
[2025-03-11 11:44] LABS: PTT Partial Thromboplastin Tim 25 SECONDS (25.1-36.5)
[2025-03-11 11:46] LABS: Add Manual Diff / Slide Review NO; Basophils Absolute Auto 100 /uL (0-100); Basophils Percent Auto 1.1 % (0-2); Eosinophils Absolute Auto 100 /uL (0-450); Eosinophils Percent Auto 1.4 % (2-4); Hemoglobin 15.9 g/dL (13.5-17.5); Lymphocytes Absolute Auto 3000 /uL (1100-4500); Lymphocytes Percent Auto 32.2 % (25-40); Mean Corpuscular HGB Conc 33.8 % (30-36); Mean Corpuscular Hemoglobin 29.2 PG (26-34); Mean Corpuscular Volume 86.6 fL (80-100); Monocytes Absolute Auto 700 /uL (0-900); Monocytes Percent Auto 7.7 % (3-14); Neutrophils Absolute Auto 5400 /uL (1500-7000); Neutrophils Percent Auto 57.6 % (50-75); Red Blood Cell Count 5.43 X10^6/uL (4.5-5.9); Red Cell Distribution Width 14.6 % (11.6-14.8); White Blood Cell Count 9.4 X10^3/uL (4.5-11.0)
[2025-03-11 11:49] LABS: Alanine Aminotransferase 38 IU/L (<50); Albumin Globulin Ratio 1.6 (1.0-2.8); Alkaline Phosphatase 41 U/L (38-126); Aspartate Aminotransferase 35 IU/L (17-59); BUN Creatinine Ratio 16.5 (6-22); Bilirubin Total 0.7 mg/dL (0.2-1.3); Blood Urea Nitrogen 14 mg/dL (9-20); Calcium 9.6 mg/dL (8.4-10.2); Carbon Dioxide 25 mmol/L (22-32); Chloride 101 mmol/L (98-107); Creatine Kinase 243 U/L (55-170); Estimated Glomerular Filt Rate > 60 mL/min (>60); Globulin 3.1 g/dL (1.7-4.1); Glucose 86 mg/dL (70-99); HEMOLYSIS 19 (0-50); Lipase 102 U/L (23-300); Magnesium 2.1 mg/dL (1.6-2.3); Potassium 4.8 mmol/L (3.4-5.1); Sodium 136 mmol/L (137-145); Total Protein 8.1 g/dL (6.3-8.2)
[2025-03-11 11:52] LABS: Prothrombin Time 10.8 SECONDS (9.4-12.5)
[2025-03-11 12:01] LABS: NT-proBNP (BNP-Adult 18+) < 20 pg/mL (<125); Troponin I < 0.012 ng/mL (0.01-0.034)
--- NOTE | 2025-03-11 13:17 | ED.CHESTPAIN ---
HPI - Chest Pain <Nadia Castañeda PA-C - Last Filed: 03/11/25 14:28> General Chief Complaint: Chest Pain Stated Complaint: High blood pressure on Blood pressure meds Time Seen by Provider: 03/11/25 12:55 Source: patient Mode of arrival: Ambulatory Limitations: no limitations History of Present Illness HPI narrative: Mr. Dumont is a very pleasant 44-year-old male with a past medical history of hypertension, hyperlipidemia, chronic pain on pain management, ED who presents to the emergency department for elevated blood pressure. Patient states that he has struggled with intermittent hypertension for the last few years, however over the last few months it has been getting worse so he was started on amlodipine, about 2 weeks ago the amlodipine was increased from 5-10 mg. He occasionally develops symptoms of mild chest tightness, headache which is associated with his high blood pressure. He called his primary care office to let them know that his blood pressures have been elevated, states that they get as high as 160/100, are typically about 158/98. They recommend he come to the emergency department due to his symptoms but they were able to schedule him for a follow up appointment tomorrow. At this time he is asymptomatic, no chest pain, shortness of breath, nausea, vomiting, visual disturbance, dizziness, lightheadedness, abdominal pain. No lower extremity pain or swelling, no dyspnea on exertion. He had a stress test 1 year ago that he reports was normal. He does have occasional PVCs. Related Data Home Medications ?Medication ?Instructions ?Recorded ?Confirmed propranolol 120 mg capsule,24 120 mg PO DAILY 12/12/24 02/17/25 hr,extended release Previous Rx's ?Medication ?Instructions ?Recorded naloxone 4 mg/actuation nasal 4 mg intranasal Q2M PRN opioid 11/22/23 spray (Narcan) overdose #2 ea lidocaine 5 % topical patch 1 patch topical DAILY #30 pad 12/17/24 promethazine 25 mg tablet 25 mg PO ONCE PRN for 12/23/24 nausea/vomiting #30 tabs needle (disp) 23 gauge 23 gauge x #100 ea 01/09/25 1 (Hypodermic [place]) syringe with needle 3 mL 21 gauge #100 ea 01/09/25 x 1 (BD Luer-Cayetnao Syringe) oxycodone 10 mg tablet 10 - 15 mg (1 - 1.5 x 10 mg) PO 02/06/25 Q4H PRN pain #196 tabs oxycodone 10 mg tablet 10 - 15 mg (1 - 1.5 x 10 mg) PO 02/06/25 Q4H PRN pain #196 tabs oxycodone 10 mg tablet 15 mg (1.5 x 10 mg) PO Q4H PRN 02/06/25 pain #196 tabs rosuvastatin 10 mg tablet 10 mg PO DAILY #30 tabs 02/06/25 testosterone cypionate 200 mg/mL 100 mg (0.5 mL) IM QWEEK #1 mL 02/06/25 intramuscular oil albuterol sulfate 90 mcg/actuation 2 puff inhalation Q6H PRN 02/09/25 aerosol inhaler shortness of breath or wheezing #6.7 grams benzonatate 200 mg capsule 200 mg PO BID PRN cough #28 caps 02/09/25 inhalational spacing device #1 ea 02/09/25 (Aerochamber MV spacer) methocarbamol 750 mg tablet 750 mg PO 3XD #90 tabs 02/18/25 amlodipine 10 mg tablet 10 mg PO DAILY #30 tabs 03/02/25 Allergies Allergy/AdvReac Type Severity Reaction Status Date / Time duloxetine Allergy Severe Hallucinati Verified 03/11/25 10:34 ng dihydroergotamine Allergy Unknown RED SKIN, Verified 03/11/25 10:34 (DIHYDROERGOTAMINE) ITCHY, VERY HOT prochlorperazine (From Allergy Unknown restless Verified 03/11/25 10:34 COMPAZINE) legs diltiazem AdvReac Severe Blood Verified 03/11/25 10:34 pressure issues losartan AdvReac Intermediate shortness Verified 03/11/25 10:34 of breath lisinopril AdvReac angio edema Verified 03/11/25 10:34 vde Allergy Unknown Uncoded 03/11/25 10:34 Review of Systems <Nadia Castañeda PA-C - Last Filed: 03/11/25 14:28> Review of Systems ROS Unobtainable: All systems reviewed & are unremarkable except as noted in HPI and below Patient History <Nadia Castañeda PA-C - Last Filed: 03/11/25 14:28> Medical History (Updated 03/11/25 @ 14:26 by Nadia Castañeda PA-C) Facet arthropathy, lumbar Herniated nucleus pulposus, L5-S1 Surgical History History of shoulder surgery History of tonsillectomy and adenoidectomy History of hand surgery Family History Son Migraine Mother Colitis Asthma Social History Smoking Status: Former smoker Smoking Status: Former smoker Exam <Nadia Castañeda PA-C - Last Filed: 03/11/25 14:28> Narrative Exam Narrative: GENERAL: 44 year old patient appears stated age. Well-developed patient, in no acute distress. HEAD: Atraumatic. Normocephalic. NECK: Trachea midline. Cervical ROM intact. CARDIOVASCULAR: Regular rate and rhythm. RESPIRATORY: ?Nonlabored respirations. ?Speaking in clear, full sentences. ?Clear to auscultation. Breath sounds equal bilaterally. No wheezes, rales, or rhonchi. ? GASTROINTESTINAL: Abdomen soft, non-tender, nondistended. protuberant. EXTREMITIES: No edema or joint tenderness. NEURO: AOx3. ?Clear speech. ?Moves all 4 extremities appropriately. Steady gait. SKIN: No rash or erythema of visible areas Initial Vital Signs Initial Vital Signs: Vital Signs Pulse Rate 70 03/11/25 10:30 Blood Pressure 139/86 03/11/25 10:30 Pulse Oximetry 97 03/11/25 10:30 <Gwendolyn Harris DO - Last Filed: 03/11/25 18:22> Initial Vital Signs Initial Vital Signs: Vital Signs Pulse Rate 70 03/11/25 10:30 Blood Pressure 139/86 03/11/25 10:30 Pulse Oximetry 97 03/11/25 10:30 Scores <Nadia Castañeda PA-C - Last Filed: 03/11/25 14:28> HEART Score Heart Score history: Slightly Suspicious Heart Score EKG: Normal Heart Score Age: < 45 years old Heart Score risk factors: > 3 risk factors or hx of atherosclerotic disease Heart Score troponin: < or = to normal limit Heart Score Total: 2 PERC Score Age greater than or equal to 50 years: No Heart rate greater than or equal to 100 bpm: No Room Air O2 Sat less than 95%: No Unilateral leg swelling: No Recent trauma or surgery: No Hemoptysis: No Prior PE or DVT: No Hormone Use: No Total PERC Score: 0 <Gwendolyn Harris DO - Last Filed: 03/11/25 18:22> HEART Score Heart Score Total: 2 PERC Score Total PERC Score: 0 Course <Nadia Castañeda PA-C - Last Filed: 03/11/25 14:28> Orders Ordered: ED Orders 03/11/25 10:37 XR chest 1V Stat EKG-12 Lead Stat 03/11/25 11:13 Complete Blood Count AUTO DIFF Stat Comprehensive Metabolic Panel Stat Lipase Stat Magnesium Stat NT-proBNP (BNP-Adult 18+) Stat PTT Partial Thromboplastin Ahsan Stat Prothrombin Time INR Stat Troponin & CK Cardiac Panel Stat 03/11/25 13:18 CBC Auto Diff [Complete Blood Count AUTO DIFF] Stat Troponin I Stat Discontinued Medications Aspirin (Aspirin 81 Mg Chew Tab) 324 mg PO NOW ONE Stop: 03/11/25 10:38 Last Admin: 03/11/25 14:43 Dose: Not Given Documented By: ROSHNI Vital Signs Vital signs: Vital Signs - 8 hr 03/11/25 10:30 03/11/25 10:30 03/11/25 10:34 Temperature 98.5 F Pulse Rate 70 74 Respiratory Rate 22 Blood Pressure 139/86 139/86 Pulse Oximetry 97 98 Oxygen Delivery Method Room Air 03/11/25 11:00 03/11/25 11:00 03/11/25 11:30 Temperature Pulse Rate 74 71 Respiratory Rate 19 15 Blood Pressure 129/83 Pulse Oximetry 93 93 Oxygen Delivery Method 03/11/25 12:00 03/11/25 12:30 03/11/25 13:00 Temperature Pulse Rate 69 69 72 Respiratory Rate 14 14 25 H Blood Pressure Pulse Oximetry 94 95 98 Oxygen Delivery Method 03/11/25 13:30 03/11/25 14:00 03/11/25 14:22 Temperature Pulse Rate 72 77 72 Respiratory Rate 15 15 21 Blood Pressure Pulse Oximetry 95 94 97 Oxygen Delivery Method 03/11/25 14:22 03/11/25 14:30 Temperature Pulse Rate 75 Respiratory Rate 19 Blood Pressure 132/86 Pulse Oximetry 95 Oxygen Delivery Method <Gwendolyn Harris DO - Last Filed: 03/11/25 18:22> Orders Ordered: ED Orders 03/11/25 10:37 XR chest 1V Stat EKG-12 Lead Stat 03/11/25 11:13 Complete Blood Count AUTO DIFF Stat Comprehensive Metabolic Panel Stat Lipase Stat Magnesium Stat NT-proBNP (BNP-Adult 18+) Stat PTT Partial Thromboplastin Ahsan Stat Prothrombin Time INR Stat Troponin & CK Cardiac Panel Stat 03/11/25 13:18 CBC Auto Diff [Complete Blood Count AUTO DIFF] Stat Troponin I Stat Discontinued Medications Aspirin (Aspirin 81 Mg Chew Tab) 324 mg PO NOW ONE Stop: 03/11/25 10:38 Last Admin: 03/11/25 14:43 Dose: Not Given Documented By: ROSHNI Vital Signs Vital signs: Vital Signs - 8 hr 03/11/25 10:30 03/11/25 10:30 03/11/25 10:34 Temperature 98.5 F Pulse Rate 70 74 Respiratory Rate 22 Blood Pressure 139/86 139/86 Pulse Oximetry 97 98 Oxygen Delivery Method Room Air 03/11/25 11:00 03/11/25 11:00 03/11/25 11:30 Temperature Pulse Rate 74 71 Respiratory Rate 19 15 Blood Pressure 129/83 Pulse Oximetry 93 93 Oxygen Delivery Method 03/11/25 12:00 03/11/25 12:30 03/11/25 13:00 Temperature Pulse Rate 69 69 72 Respiratory Rate 14 14 25 H Blood Pressure Pulse Oximetry 94 95 98 Oxygen Delivery Method 03/11/25 13:30 03/11/25 14:00 03/11/25 14:22 Temperature Pulse Rate 72 77 72 Respiratory Rate 15 15 21 Blood Pressure Pulse Oximetry 95 94 97 Oxygen Delivery Method 03/11/25 14:22 03/11/25 14:30 Temperature Pulse Rate 75 Respiratory Rate 19 Blood Pressure 132/86 Pulse Oximetry 95 Oxygen Delivery Method MDM - Chest Pain <Nadia Castañeda PA-C - Last Filed: 03/11/25 14:28> Medical Records Data Attestation: I reviewed the patient's medical records. Lab Data 03/11/25 13:18 03/11/25 11:13 Labs: Lab Results 03/11/25 03/11/25 Range/Units 11:13 13:18 WBC 9.4 8.8 (4.5-11.0) X10^3/uL RBC 5.43 5.25 (4.5-5.9) X10^6/uL Hgb 15.9 15.6 (13.5-17.5) g/dL Hct 47.0 45.7 (41-53) % MCV 86.6 87.0 (80-100) fL MCH 29.2 29.6 (26-34) PG MCHC 33.8 34.1 (30-36) % RDW 14.6 14.2 (11.6-14.8) % Plt Count TNP 293 Neut % (Auto) 57.6 58.8 (50-75) % Lymph % (Auto) 32.2 31.0 (25-40) % [place] % (Auto) 7.7 7.9 (3-14) % Eos % (Auto) 1.4 L 1.0 L (2-4) % Baso % (Auto) 1.1 1.3 (0-2) % Neut # (Auto) 5400 5200 (0538-7129) /uL Lymph # (Auto) 3000 2700 (8532-7173) /uL [place] # (Auto) 700 700 (0-900) /uL Eos # (Auto) 100 100 (0-450) /uL Baso # (Auto) 100 100 (0-100) /uL PT 10.8 (9.4-12.5) SECONDS INR 1.0 (0.9-1.3) APTT 25 L (25.1-36.5) SECONDS Sodium 136 L (137-145) mmol/L Potassium 4.8 (3.4-5.1) mmol/L Chloride 101 (98-107) mmol/L Carbon Dioxide 25 (22-32) mmol/L BUN 14 (9-20) mg/dL Creatinine 0.85 (0.66-1.25) mg/dL Estimated GFR > 60 (>60) mL/min BUN/Creatinine Ratio 16.5 (6-22) Glucose 86 (70-99) mg/dL Calcium 9.6 (8.4-10.2) mg/dL Magnesium 2.1 (1.6-2.3) mg/dL Total Bilirubin 0.7 (0.2-1.3) mg/dL AST 35 (17-59) IU/L ALT 38 (<50) IU/L Alkaline Phosphatase 41 (38-126) U/L Total Creatine Kinase 243 H (55-170) U/L Troponin I < 0.012 < 0.012 (0.01-0.034) ng/mL NT-Pro-B Natriuret Pep < 20 (<125) pg/mL Total Protein 8.1 (6.3-8.2) g/dL Albumin 5.0 (3.5-5.0) g/dL Globulin 3.1 (1.7-4.1) g/dL Albumin/Globulin Ratio 1.6 (1.0-2.8) Lipase 102 (23-300) U/L Imaging Data Chest x-ray: Radiologist's Impression: PROCEDURE: XR CHEST 1V INDICATIONS: Chest Pain TECHNIQUE: One view of the chest was acquired. COMPARISON: [facility], , XR CHEST 1V, 04/17/2024, 14:35. FINDINGS: Surgical changes and devices: Stimulator leads are seen. Lungs and pleura: Lungs are clear. No pleural effusions or pneumothorax. Mediastinum: Mediastinal contours appear normal. Heart size is normal. Bones and chest wall: No suspicious bony lesions. Overlying soft tissues appear unremarkable. IMPRESSION: No acute cardiopulmonary pathology. Dictated by: Samuel Ibarra M.D. on 03/11/2025 at 11:04 Approved by: Samuel Ibarra M.D. on 03/11/2025 at 11:07 [facility] Narrative Medical decision making narrative: 44-year-old male with a past medical history of hypertension, hyperlipidemia, chronic pain on pain management, ED who presents to the emergency department for elevated blood pressure. Differential diagnosis includes but is not limited to hypertension, hypertensive urgency, hypertensive emergency, ACS, pneumonia, pleural effusion, etc. On exam patient is in no acute distress, nontoxic appearing, initial vital signs normal with a blood pressure of 139/86. He is not currently experiencing any symptoms. ECG reveals normal sinus rhythm with a rate of 73 beats per minute. Labs reassuring with negative BNP, negative troponin. Normal WBC count 9.4, hemoglobin 15.9. Sodium 136, potassium 4.8, BUN 14 creatinine 0.85. CK slightly elevated to 43. Chest x-ray normal. We will repeat troponin. Heart score 2. Repeat troponin negative. Repeat platelets normal 293. The patient remained symptom free during his emergency department stay. Repeat blood pressure 130s/80s. He has an appointment tomorrow with his primary care doctor. Discussed strict ED return precautions. Patient verbalized understanding of all information agreeable to plan. He is stable for discharge home. <Gwendolyn Harris, DO - Last Filed: 03/11/25 18:22> Lab Data Labs: Lab Results 03/11/25 03/11/25 Range/Units 11:13 13:18 WBC 9.4 8.8 (4.5-11.0) X10^3/uL RBC 5.43 5.25 (4.5-5.9) X10^6/uL Hgb 15.9 15.6 (13.5-17.5) g/dL Hct 47.0 45.7 (41-53) % MCV 86.6 87.0 (80-100) fL MCH 29.2 29.6 (26-34) PG MCHC 33.8 34.1 (30-36) % RDW 14.6 14.2 (11.6-14.8) % Plt Count TNP 293 Neut % (Auto) 57.6 58.8 (50-75) % Lymph % (Auto) 32.2 31.0 (25-40) % [place] % (Auto) 7.7 7.9 (3-14) % Eos % (Auto) 1.4 L 1.0 L (2-4) % Baso % (Auto) 1.1 1.3 (0-2) % Neut # (Auto) 5400 5200 (9481-2430) /uL Lymph # (Auto) 3000 2700 (5625-1335) /uL [place] # (Auto) 700 700 (0-900) /uL Eos # (Auto) 100 100 (0-450) /uL Baso # (Auto) 100 100 (0-100) /uL PT 10.8 (9.4-12.5) SECONDS INR 1.0 (0.9-1.3) APTT 25 L (25.1-36.5) SECONDS Sodium 136 L (137-145) mmol/L Potassium 4.8 (3.4-5.1) mmol/L Chloride 101 (98-107) mmol/L Carbon Dioxide 25 (22-32) mmol/L BUN 14 (9-20) mg/dL Creatinine 0.85 (0.66-1.25) mg/dL Estimated GFR > 60 (>60) mL/min BUN/Creatinine Ratio 16.5 (6-22) Glucose 86 (70-99) mg/dL Calcium 9.6 (8.4-10.2) mg/dL Magnesium 2.1 (1.6-2.3) mg/dL Total Bilirubin 0.7 (0.2-1.3) mg/dL AST 35 (17-59) IU/L ALT 38 (<50) IU/L Alkaline Phosphatase 41 (38-126) U/L Total Creatine Kinase 243 H (55-170) U/L Troponin I < 0.012 < 0.012 (0.01-0.034) ng/mL NT-Pro-B Natriuret Pep < 20 (<125) pg/mL Total Protein 8.1 (6.3-8.2) g/dL Albumin 5.0 (3.5-5.0) g/dL Globulin 3.1 (1.7-4.1) g/dL Albumin/Globulin Ratio 1.6 (1.0-2.8) Lipase 102 (23-300) U/L Discharge Plan Departure Patient Disposition: Home Clinical Impression: Hypertension Qualifiers: Hypertension type: unspecified Qualified Code(s): I10 - Essential (primary) hypertension Instructions: The DASH Diet, DI for High Blood Pressure Activity Restrictions/Additional Instructions: Dear Julia, Thank you for coming to the emergency department. Today you were evaluated for elevated blood pressure associated with chest pressure. I am very glad that your symptoms are not currently present and your blood pressure has been stable in the emergency department. Please record your blood pressure daily to bring with you to your primary care doctor, continue taking your amlodipine as prescribed. Rest, hydrate, and follow up with the primary care doctor tomorrow as scheduled. Return to the ER if you ever develop chest pain, difficulty breathing, stroke-like symptoms or other concerns. If you have a home blood pressure cuff, please bring it with to your appointment tomorrow so that it can be calibrated to make sure that it is working. Please follow up with your primary care doctor within the next 2-3 days for ER follow-up. (If you do not have a PCP you can call [phone]. ?to schedule an appointment with an [facility] Primary Care Provider) IF YOU DEVELOP ANY NEW OR WORSENING SYMPTOMS, RETURN TO THE ER! Please read the attached instructions, they highlight more specific treatments and interventions for you at home. Thank you for letting me participate in your care, Nadia Castañeda PA-C Prescriptions: No Action (DME) needle (disp) 23 gauge [Hypodermic [place]] 23 gauge x 1 needle See Rx Instructions .ROUTE .MEDSUPPLY Qty: 100 3RF Rx Instructions: As directed (DME) BD Luer-Cayetano Syringe 3 mL 21 gauge x 1 syringe See Rx Instructions .ROUTE DIRECTED Qty: 100 3RF Rx Instructions: As directed oxycodone 10 mg tablet 15 mg PO Q4H PRN (Reason: pain) Qty: 196 0RF oxycodone 10 mg tablet 10 - 15 mg PO Q4H PRN (Reason: pain) Qty: 196 0RF oxycodone 10 mg tablet 10 - 15 mg PO Q4H PRN (Reason: pain) Qty: 196 0RF rosuvastatin 10 mg tablet 10 mg PO DAILY Qty: 30 3RF testosterone cypionate 200 mg/mL oil 100 mg IM QWEEK Qty: 1 5RF (DME) Aerochamber MV Spacer See Rx Instructions .ROUTE .MEDSUPPLY Qty: 1 0RF Rx Instructions: As directed benzonatate 200 mg capsule 200 mg PO BID PRN (Reason: cough) Qty: 28 0RF albuterol sulfate 90 mcg/actuation HFA aerosol inhaler 2 puff inhalation Q6H PRN (Reason: shortness of breath or wheezing) Qty: 6.7 0RF naloxone [Narcan] 4 mg/actuation spray,non-aerosol 4 mg intranasal Q2M PRN (Reason: opioid overdose) Qty: 2 0RF Rx Instructions: spray 1 dose into ONE nostril; alternate nostrils w each dose until help arrives propranolol 120 mg capsule,extended release 24 hr 120 mg PO DAILY lidocaine 5 % adhesive patch,medicated 1 patch topical DAILY Qty: 30 1RF promethazine 25 mg tablet 25 mg PO ONCE PRN (Reason: for nausea/vomiting) Qty: 30 4RF Rx Instructions: Once Daily PRN for nausea/vomiting. methocarbamol 750 mg tablet 750 mg PO 3XD Qty: 90 4RF amlodipine 10 mg tablet 10 mg PO DAILY Qty: 30 2RF Rx Instructions: dosage increase lidocaine HCl 10 mg/mL (1 %) solution 1 ml intra-articular ONCE Qty: 1 0RF triamcinolone acetonide 40 mg/mL suspension 40 mg intra-articular ONCE Qty: 1 0RF bupivacaine (PF) 0.25 % (2.5 mg/mL) solution 1 ml intra-articular ONCE Qty: 1 0RF Referrals: Jessica Faulkner MD [Primary Care Provider, Family Practice] Stand Alone Forms: Patient Portal/API ED Sign-out <Gwendolyn Harris, - Last Filed: 03/11/25 18:22> Cosign ED Attending Cosignature Attestation: I was immediately available in the department for consultation.
[2025-03-11 13:38] LABS: Add Manual Diff / Slide Review NO; Basophils Absolute Auto 100 /uL (0-100); Basophils Percent Auto 1.3 % (0-2); Eosinophils Absolute Auto 100 /uL (0-450); Hematocrit 45.7 % (41-53); Hemoglobin 15.6 g/dL (13.5-17.5); Lymphocytes Absolute Auto 2700 /uL (1100-4500); Mean Corpuscular HGB Conc 34.1 % (30-36); Mean Corpuscular Hemoglobin 29.6 PG (26-34); Monocytes Absolute Auto 700 /uL (0-900); Monocytes Percent Auto 7.9 % (3-14); Neutrophils Absolute Auto 5200 /uL (1500-7000); Neutrophils Percent Auto 58.8 % (50-75); Platelet Count 293 X10^3/uL (150-400); Red Blood Cell Count 5.25 X10^6/uL (4.5-5.9); Red Cell Distribution Width 14.2 % (11.6-14.8); White Blood Cell Count 8.8 X10^3/uL (4.5-11.0)
[2025-03-11 14:01] LABS: Troponin I < 0.012 ng/mL (0.01-0.034)
== END 2025-03-11 14:55 | disposition home or self-care (01) ==
PROVIDERS: Emergency Medicine; Emergency Provider Physician Assistant; Family Provider Student in an Organized Health Care Education/Training Program; PCP Student in an Organized Health Care Education/Training Program
DX: I10 Essential (primary) hypertension (principal); R07.9 Chest pain, unspecified; R51.9 Headache, unspecified
CPT/HCPCS: 71045; 80053; 82550; 83690; 83735; 83880; 84484; 85025; 85610; 85730; 93005; 94002; 94799; 99283; 99284

== ENCOUNTER → 2025-04-01 08:17 | Outpatient (CLI) | payer OTHER, SELFPAY ==
[2025-03-11 11:56] VITALS: PULSE 114; RESP 24; O2SAT 98
[2025-04-01 08:53] LABS: Cholesterol 119 mg/dL (140-199); HDL Cholesterol 37 mg/dL (40-60); Triglycerides 168 mg/dL (35-150)
== END ==
PROVIDERS: PCP Student in an Organized Health Care Education/Training Program; Referring Provider Student in an Organized Health Care Education/Training Program; Visit Provider Student in an Organized Health Care Education/Training Program
DX: E78.00 Pure hypercholesterolemia, unspecified (principal)
CPT/HCPCS: 36415; 80061